=== PATIENT | female | born 1965 | race Caucasian/White ===

== ENCOUNTER → 2016-06-12 | Outpatient (CLI) | payer OTHER ==
--- NOTE | 2016-06-12 10:30 | US ---
EXAMINATION TYPE: US carotid duplex BILAT DATE OF EXAM: 06/12/2016 10:09 AM COMPARISON: NONE CLINICAL HISTORY: G43.119 Intractable migraine w/aura w/o migrainosus. EXAM MEASUREMENTS: RIGHT: Peak Systolic Velocity (PSV) cm/sec ----- Right CCA: 90.8 ----- Right ICA: 82.0 ----- Right ECA: 64.2 ICA/CCA ratio: 0.9 RIGHT: End Diastole cm/sec ----- Right CCA: 29.2 ----- Right ICA: 30.3 ----- Right ECA: 12.7 LEFT: Peak Systolic Velocity (PSV) cm/sec ----- Left CCA: 72.8 ----- Left ICA: 78.7 ----- Left ECA: 62.5 ICA/CCA ratio: 1.1 LEFT: End Diastole cm/sec ----- Left CCA: 28.4 ----- Left ICA: 36.9 ----- Left ECA: 14.5 VERTEBRALS (direction of flow): Right Vertebral: Antegrade Left Vertebral: Antegrade TECHNOLOGIST IMPRESSION: No significant stenosis seen, no elevated velocities, no plaque identified. Grayscale images show no significant plaque at carotid bulb level bilaterally. Velocity measurements and ratios in visualized portion of both internal carotid arteries is within normal limits. IMPRESSION: No hemodynamically significant stenosis is seen in either internal carotid artery. Criteria for Assigning % of Stenosis / Diameter reduction (Estimation based on the indirect measurements of the internal carotid artery velocities (ICA PSV). 1. Normal (no stenosis)=ICA PSV < 125 cm/s: ratio < 2.0: ICA EDV<40 cm/s.
== END | disposition home or self-care (01) ==
LOC: RADUSWWP 09:49
PROVIDERS: ATTEND Psychiatry & Neurology Neurology
DX: G43.119 Migraine with aura, intractable, without status migrainosus (principal)
CPT/HCPCS: 93880

== ENCOUNTER → 2016-06-13 | Outpatient (CLI) | payer OTHER ==
[2016-06-13 09:31] VITALS: BP 121/77; PULSE 80; TEMP 98.3; BMI 31.6
[2016-06-13 11:31] LABS: INR 1.1 (<1.1); Partial Thromboplastin Time 23.3 sec (22.0-30.0); Prothrombin Time 11.2 sec (9.0-12.0)
[2016-06-13 11:48] LABS: CH 30.6; CHCM 35.2; HGB 15.1 gm/dL (11.4-16.0); MCH 29.3 pg (25.0-35.0); MCHC 33.6 g/dL (31.0-37.0); MCV 87.2 fL (80.0-100.0); Mean Platelet Volume 7.6; RBC 5.16 m/uL (3.80-5.40); RDW 13.9 % (11.5-15.5); WBC 7.4 k/uL (3.8-10.6)
[2016-06-13 12:36] LABS: ALT 102 U/L (9-52); AST 45 U/L (14-36); Alkaline Phosphatase 97 U/L (38-126); Anion Gap 14 mmol/L; Blood Urea Nitrogen 17 mg/dL (7-17); Calcium 9.5 mg/dL (8.4-10.2); Carbon Dioxide 21 mmol/L (22-30); Chloride 107 mmol/L (98-107); Cholesterol 138 mg/dL (<200); Glucose 92 mg/dL (74-99); HDL Cholesterol 39 mg/dL (40-60); Iron 130 ug/dL (37-170); Magnesium 2.1 mg/dL (1.6-2.3); Non-African American GFR(MDRD) >60 (>60 ml/min/1.73 sqM); Phosphorous 4.4 mg/dL (2.5-4.5); Sodium 142 mmol/L (137-145); Total Bilirubin 0.7 mg/dL (0.2-1.3); Total Protein 6.8 g/dL (6.3-8.2); Triglycerides 140 mg/dL (<150)
[2016-06-13 12:45] LABS: % Iron Saturation 36.8 % (20-50); Prealbumin 26 mg/dL (18-36); Total Iron Binding Capacity 353 ug/dL (265-497)
[2016-06-13 13:40] LABS: Vitamin B12 410 pg/mL (239-931)
[2016-06-13 14:11] LABS: Hemoglobin A1C 4.7 % (4.2-6.1)
[2016-06-19 14:09] LABS: Selenium 120 mcg/L (63-160)
--- NOTE | 2016-08-01 05:48 | P.PN ---
Progress Note - Text DATE OF SERVICE: 06/13/2016 CHIEF COMPLAINT: Followup gastric bypass. HISTORY OF PRESENT ILLNESS: Jolie Reilly is a 51-year-old female, status post gastric bypass 12/11/2015. She is now 6 months postop. Her heaviest weight in this program was 274 pounds. Today she comes in weighing 190 pounds. She has lost 84 pounds. For her height of 5 feet 5 inches, her ideal body weight is 149 pounds. Percent excess weight loss after 6 months is 67%. Body mass index has been reduced from 45.7 down to 31.7. Total BMI point reduction is 14 points. She reports moderate improvement of her hypertension. Her gastroesophageal reflux disease has completely resolved. She does report intermittent constipation. No reports of dumping syndrome. She comes in with reports of hair loss, including panniculitis of the abdominal skin. Now she presents for further evaluation and management. PAST MEDICAL HISTORY: 1. Morbid obesity. 2. Asthma. 3. Vertigo. 4. Gastroesophageal reflux disease. 5. Hypertension. 6. Anxiety. 7. Depression. 8. Hypothyroidism. PAST SURGICAL HISTORY: 1. Breast biopsy. 2. Cholecystectomy. 3. Tonsillectomy. 4. Upper endoscopy. 5. Colonoscopy. 6. Spinal tap. 7. Hysterectomy. 8. Sleep assessment. 9. Adia-en-Y gastric bypass. MEDICATIONS: 1. Lisinopril. 2. Flonase. 3. Prozac. 4. Fiorinal. 5. Ventolin inhaler. 6. Xanax. 7. Vitamin B complex. 8. Multivitamin. 9. Vitamin D. 10. Glucosamine sulfate. 11. Vitamin A. 12. Iron. 13. Calcium nitrate. 14. Omeprazole. ALLERGIES: 1. AMOXICILLIN. 2. CIPRO. 3. LASIX. 4. AUGMENTIN. 5. SHELLFISH. 6. RAW EGG. SOCIAL HISTORY: Former tobacco user. Also former alcohol use. FAMILY HISTORY: Notable for lung cancer. REVIEW OF SYSTEMS: CONSTITUTIONAL: [place] body weight of 149 pounds. Highest weight of 274 pounds. Present weight of 190 pounds. Maintained weight loss of 84 pounds. Percent excess weight loss of 67%. Body mass index reduced from 45.7 down to 31.6. Total BMI point reduction of 14 points. She has lost another 16 pounds since her last visit 4 months ago. CARDIOVASCULAR: Improvement of hypertension. GASTROINTESTINAL: Improved gastroesophageal reflux disease. RESPIRATORY: Resolved sleep apnea. MUSCULOSKELETAL: Improved knee and hip pain. ENDOCRINE: History of hypothyroidism. No reports of active diabetes. HEENT: Denied any trouble with vision or hearing. Wears glasses. NEURO: Denies any seizure disorder, however, has migraines. PSYCH: Denies any depression or suicidal ideation. HEMATOLOGIC: Denies any personal history or family history of pulmonary emboli or DVTs. PHYSICAL EXAM: VITAL SIGNS: 98.3, 80, 121/77, respirations of 16; 5 foot 5 inches, 190 pounds. Body mass 31.6. ABDOMEN: Soft, nontender. Hyperemia noted along with pannus. No palpable incisional hernias. Abdominal skin of 5 to 8 pounds hanging over pubis of 5 cm. MUSCULOSKELETAL: No clubbing, cyanosis, or edema. GENERAL: Well-developed female in no acute distress. HEENT: No scleral icterus. Extraocular movements grossly intact. Moist buccal mucosa. NECK: Supple without lymphadenopathy. CHEST: Unlabored respirations with equal bilateral excursion. CARDIOVASCULAR: Regular rate and rhythm. NEURO: No focal or lateralizing signs. Cranial nerves 2 through 12 grossly within normal limits. PSYCH: Appropriate affect. Alert and oriented to person, place and time. LABS: Hemoglobin normal at 15.1. Carbon dioxide low at 21. Creatinine low at 0.5. AST elevated at 45. ALT elevated at 102. HDL low at 39. Rest of trace elements are within normal limits. ASSESSMENT: 1. Morbid obesity due to excess calories, resolved. 2. Body mass index reduced from 45.7 down to 31.6, overweight. 3. Dietary surveillance and counseling. 4. History of primary snoring, resolved. 5. Depression without suicidal ideation. 6. Fibromyalgia. 7. Hypertensive heart disease without known cardiomyopathy, improved. 8. Osteoarthritis of the bilateral knees and lower back, improved. 9. Gastroesophageal reflux disease, improved. 10. Hypothyroidism. 11. Status post Adia-en-Y gastric bypass. 12. Vitamin A deficiency. 13. Vitamin D deficiency. 14. Hypotension, resolved. 15. Intermittent dysphagia. 16. Panniculitis. 17. History of hair loss. PLAN: 1. For her hair loss, her nutritional profile is within normal limits. Alternatively, she may take biotin for hair. Otherwise hair loss may be a genetic factor. 2. She reports improvement of her reflux disease and I have offered discontinuing her omeprazole. 3. On exam, she does have history of redundant pannus. Would recommend nystatin powder for her panniculitis. 4. She is 6 months out and has done extremely well with percent excess weight loss of 67%. 5. Recommended followup 3 months postop; otherwise for August 2016.
== END | disposition home or self-care (01) ==
LOC: BARWHC3 08:58
PROVIDERS: ATTEND Surgery Plastic and Reconstructive Surgery
DX: Z48.815 Encounter for surgical aftercare following surgery on the digestive system (principal); E66.01 Morbid (severe) obesity due to excess calories; Z98.84 Bariatric surgery status; Z71.3 Dietary counseling and surveillance; E21.1 Secondary hyperparathyroidism, not elsewhere classified; E89.1 Postprocedural hypoinsulinemia; D50.8 Other iron deficiency anemias; E44.0 Moderate protein-calorie malnutrition; E55.9 Vitamin D deficiency, unspecified; K74.1 Hepatic sclerosis; N19 Unspecified kidney failure; K50.90 Crohn's disease, unspecified, without complications
CPT/HCPCS: 84255; 84134; 84425; 80061; 80053; 82607; 82728; 83036; 82525; 82746; 83540; 83550; 83735; 84100; 84443; 84590; 84630; 85027; 85610; 85730; 82306; 83970; 97803; G0463; 99211

== ENCOUNTER → 2016-06-28 | Outpatient (CLI) | payer OTHER ==
[2016-06-28 13:25] LABS: ALT 69 U/L (9-52); AST 46 U/L (14-36)
== END | disposition home or self-care (01) ==
LOC: LABWHC1 12:14
PROVIDERS: ATTEND Family Medicine
DX: R89.9 Unspecified abnormal finding in specimens from other organs, systems and tissues (principal)
CPT/HCPCS: 36415; 84450; 84460

== ENCOUNTER → 2016-07-09 | Outpatient (CLI) | payer OTHER ==
[2016-07-09 12:47] LABS: Bilirubin, Delta 0.3 mg/dL (0.0-0.2); Total Bilirubin 0.8 mg/dL (0.2-1.3); Total Protein 6.4 g/dL (6.3-8.2)
== END ==
LOC: LABWHC1 11:57
PROVIDERS: ATTEND Family Medicine
DX: R94.5 Abnormal results of liver function studies (principal)
CPT/HCPCS: 36415; 80076

== ENCOUNTER → 2016-07-11 | Outpatient (CLI) | payer OTHER ==
[2016-07-11 20:10] LABS: Appearance,CSF Clear
[2016-07-15 13:46] LABS: Lyme Specimen Source Not Provided
[2016-07-16 14:19] LABS: Immunoglobulin G 297 mg/dL (700 - 1600)
== END | disposition home or self-care (01) ==
LOC: LABWHC1 13:58
PROVIDERS: ATTEND Nurse Practitioner Acute Care
DX: R90.82 White matter disease, unspecified (principal)
CPT/HCPCS: 36415; 82040; 82042; 82784; 83873; 83916; 84157; 87476; 88108; 89050

== ENCOUNTER → 2016-07-18 | Outpatient (CLI) | payer OTHER ==
[2016-07-18 12:01] LABS: CHCM 34.8; HCT 42.1 % (34.0-46.0); HDW 2.84; HGB 14.6 gm/dL (11.4-16.0); MCH 31.1 pg (25.0-35.0); MCHC 34.7 g/dL (31.0-37.0); MCV 89.4 fL (80.0-100.0); Mean Platelet Volume 8.4; RDW 13.2 % (11.5-15.5); WBC 5.7 k/uL (3.8-10.6)
[2016-07-18 12:10] LABS: ALT 77 U/L (9-52); AST 49 U/L (14-36)
[2016-07-18 12:43] LABS: Hepatitis B Surface Ag Index 0.05
[2016-07-18 12:49] LABS: Hepatitis B Core IgM Index 0.02
[2016-07-18 13:00] LABS: Hepatitis C Virus IgG Index 0.01
[2016-07-18 13:05] LABS: Hepatitis C Virus IgG Ab Negative (Negative)
== END ==
LOC: LABWHC1 11:20
PROVIDERS: ATTEND Family Medicine
DX: D64.9 Anemia, unspecified (principal); R94.5 Abnormal results of liver function studies
CPT/HCPCS: 36415; 80074; 84450; 84460; 85027

== ENCOUNTER → 2016-07-18 | Outpatient (CLI) | payer OTHER ==
[2016-07-18 11:45] VITALS: BP 109/72; PULSE 74; RESP 16; TEMP 98.3; BMI 32.0
--- NOTE | 2016-08-15 22:01 | P.PN ---
Progress Note - Text DATE OF SERVICE: 07/18/2016 CHIEF COMPLAINT: Follow-up gastric bypass. HISTORY OF PRESENT ILLNESS: Jolie Reilly is a 51-year-old female who is status post gastric bypass 12/11/2015. She is now 9 months out. At her height of 5 feet 5 inches, her ideal body weight is 149 pounds. Her highest weight is 274 pounds. She comes in weighing 192 pounds. She has lost 82 pounds. Percent excess weight loss is 66%. Body mass index is reduced from 45.7 down to 32. Total BMI point reduction is 13.7. She is 43 pounds overweight. She still reports mild gastroesophageal reflux disease whereby she is still taking omeprazole. She reports troubles with meal plan and continued protein intake. She now presents for further evaluation and management. PAST MEDICAL HISTORY: 1. Morbid obesity. 2. Asthma. 3. Vertigo. 4. Gastroesophageal reflux disease. 5. Hypertension. 6. Anxiety. 7. Depression. 8. Hypothyroidism. PAST SURGICAL HISTORY: 1. Breast biopsy. 2. Cholecystectomy. 3. Tonsillectomy. 4. Upper endoscopy. 5. Colonoscopy. 6. Spinal tap. 7. Hysterectomy. 8. Sleep assessment. 9. Adia-en-Y gastric bypass. MEDICATIONS: 1. Vitamin B complex. 2. Vitamin A. 3. Omeprazole. 4. Nystatin powder. 5. Multivitamin. 6. Antivert. 7. Lisinopril. 8. Levothyroxine. 9. Iron. 10. Glucosamine sulfate. 11. Flonase. 12. Prozac. 13. Vitamin D. 14. Calcium citrate. 15. Fiorinal. 16. Ventolin nebulizer. 17. Ventolin inhaler. 18. Xanax. ALLERGIES: 1. AMOXICILLIN. 2. CIPRO. 3. LASIX. 4. AUGMENTIN. 5. SHELLFISH. 6. RAW EGG. SOCIAL HISTORY: Former tobacco user. Also former alcohol use. FAMILY HISTORY: Notable for lung cancer. REVIEW OF SYSTEMS: CARDIOVASCULAR: She has decreased her dose of her lisinopril including blood pressure medications. RESPIRATORY: She has resolved obstructive sleep apnea. CONSTITUTIONAL: Total maintained weight loss of 82 pounds. Percent excess weight loss of 66%. At her height of 5 feet 5 inches, her ideal body weight is 149 pounds. Her highest weight is 274 pounds. She comes in weighing 192 pounds. She has lost 82 pounds. Body mass index is reduced from 45.7 down to 32. Total BMI point reduction is 13.7. She is 43 pounds overweight. GASTROINTESTINAL: Improved gastroesophageal reflux disease. MUSCULOSKELETAL: Improved knee and hip pain. ENDOCRINE: History of hypothyroidism. No reports of active diabetes. HEENT: Denied any trouble with vision or hearing. Wears glasses. NEURO: Denies any seizure disorder, however, has migraines. PSYCH: Denies any depression or suicidal ideation. HEMATOLOGIC: Denies any personal history or family history of pulmonary emboli or DVTs. PHYSICAL EXAM: VITAL SIGNS: 98.3, 74, 16, 109/72; 5 feet 5, 192 pounds, body mass index 32. ABDOMEN: Soft, nontender, nondistended. No palpable incisional hernias. MUSCULOSKELETAL: No clubbing, cyanosis, or edema. GENERAL: Well-developed female in no acute distress. HEENT: No scleral icterus. Extraocular movements grossly intact. Moist buccal mucosa. NECK: Supple without lymphadenopathy. CHEST: Unlabored respirations with equal bilateral excursion. CARDIOVASCULAR: Regular rate and rhythm. NEURO: No focal or lateralizing signs. Cranial nerves 2 through 12 grossly within normal limits. PSYCH: Appropriate affect. Alert and oriented to person, place and time. LABS: Hepatitis was negative. AST and ALT are elevated. ASSESSMENT: 1. Morbid obesity due to excess calories, resolved. 2. Body mass index reduced from 45.7 down to 31.6, overweight. 3. Dietary surveillance and counseling. 4. History of primary snoring, resolved. 5. Depression without suicidal ideation. 6. Fibromyalgia. 7. Hypertensive heart disease without known cardiomyopathy, improved. 8. Osteoarthritis of the bilateral knees and lower back, improved. 9. Gastroesophageal reflux disease, improved. 10. Hypothyroidism. 11. Status post Adia-en-Y gastric bypass. 12. Vitamin A deficiency. 13. Vitamin D deficiency. 14. Hypotension, resolved. 15. Intermittent dysphagia. 16. Panniculitis. 17. History of hair loss. 18. History of elevated liver enzymes. PLAN: 1. As she is a bypass patient it is expected that AST and ALT will be elevated and transient. I recommend no additional surgical interventions. 2. Her HDL is low at 39. Would recommend cardiovascular exercise to elevate her HDL. 3. Recommend follow-up one year postop. Full bariatric metabolic panel was reviewed with her in detail. I have recommended decreasing her lisinopril.
== END | disposition home or self-care (01) ==
LOC: BARWHC3 10:27
PROVIDERS: ATTEND Surgery Plastic and Reconstructive Surgery
DX: E66.01 Morbid (severe) obesity due to excess calories (principal); Z68.32 Body mass index [BMI] 32.0-32.9, adult
CPT/HCPCS: 99211

== ENCOUNTER → 2016-07-24 | Outpatient (CLI) | payer OTHER ==
--- NOTE | 2016-07-24 13:46 | MR ---
EXAMINATION TYPE: MR cervical spine wo con DATE OF EXAM: 07/24/2016 11:09 AM COMPARISON: 07/23/1999 HISTORY: Patient c/o migraines, nerve pain, unsteady gait, stiffness in neck TECHNIQUE: Multiplanar, multisequence images of the cervical spine were acquired. C2-C3: No evidence for degenerative disc disease. No disc bulge/herniation or protrusion. No Canal stenosis. Foramina are patent bilaterally. C3-C4: No evidence for degenerative disc disease. No disc bulge/herniation or protrusion. No Canal stenosis. Foramina are patent bilaterally. C4-C5: No evidence for degenerative disc disease. No disc bulge/herniation or protrusion. No Canal stenosis. Foramina are patent bilaterally. C5-C6: Very mild right paracentral disc bulging. Mild uncovertebral joint hypertrophy. No canal steno sis or foraminal encroachment C6-C7: Mild uncovertebral joint hypertrophy bilaterally and very minimal central paracentral disc bul ging. No canal stenosis. No foraminal encroachment or nerve root impingement. C7-T1: No evidence for degenerative disc disease. No disc bulge/herniation or protrusion. No Canal stenosis. Foramina are patent bilaterally. Cervical segments are intact. There is normal alignment. Cervical spinal cord is of normal signal. Craniovertebral junction relationships are within normal limits. Loss of disc height and signal is greatest at C4-C5, C5-C6. There are endplate discogenic marrow signal changes compatible with degener ative disc disease. Minimal anterolisthesis grade 1 present at C4-C5, C5-C6, C6-C7. IMPRESSION: 1. Stable multilevel degenerative disc disease. 2. Disc bulging C5-6 and C6-C7 with no canal stenosis or foraminal encroachment.
== END | disposition home or self-care (01) ==
LOC: RADMRIMAIN 10:22
PROVIDERS: ATTEND Nurse Practitioner Acute Care
DX: M50.222 Other cervical disc displacement at C5-C6 level (principal); M50.30 Other cervical disc degeneration, unspecified cervical region
CPT/HCPCS: 72141

== ENCOUNTER → 2016-09-07 | Outpatient (CLI) | payer OTHER ==
[2016-09-07 08:22] LABS: Blood Urea Nitrogen 14 mg/dL (7-17); Non-African American GFR(MDRD) >60 (>60 ml/min/1.73 sqM)
--- NOTE | 2016-09-08 07:50 | MR ---
MRI of the brain with and without contrast HISTORY: Headaches. TECHNIQUE: T1-weighted sagittal, T2, FLAIR, and diffusion axial, postcontrast T1 axial and coronal vi ews of the brain are submitted. CONTRAST: 17 mL's MultiHance COMPARISON: 03/18/2016 FINDINGS: There is no evidence of acute ischemia. The ventricles, basal cisterns, and sulci overlying the co nvexities are consistent with the patient's age. There is no mass effect or enhancing mass. Craniocervical junction maintained. Partially empty sella turcica. No evidence of cerebellopontine an gle mass. Linear area of enhancement involving the right frontal lobe seen on the sagittal and coronal image ap pears vascular. WHITE MATTER: Previous seen noted pontine lesions are no longer identified. There are proximally 25 white matter lesions seen scattered throughout the white matter bilaterally. The largest within the left parietal lobe measuring 9 mm. This is increased in size from previous exa m. Remaining lesions appear stable in size, morphology and number. No enhancing lesion. IMPRESSION: 1. There is a lesion within the left parietal lobe which is increased in size now measuring 9 mm and previously measuring approximately 4 mm. No enhancing lesions. 2. There is interval resolution of pontine lesions.
== END | disposition home or self-care (01) ==
LOC: RADMRIMAIN 07:40
PROVIDERS: ATTEND Nurse Practitioner Acute Care
DX: G93.89 Other specified disorders of brain (principal); R90.82 White matter disease, unspecified; Z88.1 Allergy status to other antibiotic agents; Z91.09 Other allergy status, other than to drugs and biological substances
CPT/HCPCS: 82565; 84520; 70553; A9577

== ENCOUNTER → 2016-10-09 | Outpatient (CLI) | payer OTHER ==
[2016-10-09 16:27] VITALS: BP 108/76; PULSE 69; RESP 16; TEMP 98.3; BMI 31.2
[2016-10-09 17:30] LABS: CHCM 33.9; HCT 44.5 % (34.0-46.0); HDW 2.68; HGB 14.6 gm/dL (11.4-16.0); MCHC 32.8 g/dL (31.0-37.0); MCV 91.7 fL (80.0-100.0); Mean Platelet Volume 8.5; RBC 4.85 m/uL (3.80-5.40); RDW 13.4 % (11.5-15.5); WBC 7.2 k/uL (3.8-10.6)
[2016-10-09 17:36] LABS: INR 1.1 (<1.1)
[2016-10-09 17:37] LABS: Partial Thromboplastin Time 24.2 sec (22.0-30.0)
[2016-10-09 17:42] LABS: ALT 145 U/L (9-52); AST 89 U/L (14-36); Alkaline Phosphatase 130 U/L (38-126); Anion Gap 11 mmol/L; Blood Urea Nitrogen 13 mg/dL (7-17); Calcium 9.5 mg/dL (8.4-10.2); Carbon Dioxide 23 mmol/L (22-30); Chloride 107 mmol/L (98-107); Cholesterol 145 mg/dL (<200); Glucose 86 mg/dL (74-99); HDL Cholesterol 54 mg/dL (40-60); Iron 104 ug/dL (37-170); Magnesium 2.2 mg/dL (1.6-2.3); Non-African American GFR(MDRD) >60 (>60 ml/min/1.73 sqM); Phosphorous 4.8 mg/dL (2.5-4.5); Potassium 4.9 mmol/L (3.5-5.1); Sodium 141 mmol/L (137-145); Total Bilirubin 0.4 mg/dL (0.2-1.3); Total Protein 6.5 g/dL (6.3-8.2); Triglycerides 167 mg/dL (<150)
[2016-10-09 17:51] LABS: % Iron Saturation 31.3 % (20-50); Prealbumin 26 mg/dL (18-36); Total Iron Binding Capacity 332 ug/dL (265-497)
[2016-10-09 18:46] LABS: Vitamin B12 608 pg/mL (239-931)
[2016-10-09 20:35] LABS: Hemoglobin A1C 4.7 % (4.2-6.1)
[2016-10-11 16:20] LABS: Selenium 154 mcg/L (63-160)
== END | disposition home or self-care (01) ==
LOC: BARWHC3 14:40
PROVIDERS: ATTEND Surgery Plastic and Reconstructive Surgery
DX: Z48.815 Encounter for surgical aftercare following surgery on the digestive system (principal); E66.01 Morbid (severe) obesity due to excess calories; Z98.84 Bariatric surgery status; E21.1 Secondary hyperparathyroidism, not elsewhere classified; E89.1 Postprocedural hypoinsulinemia; D50.9 Iron deficiency anemia, unspecified; E44.0 Moderate protein-calorie malnutrition; E55.9 Vitamin D deficiency, unspecified; K74.1 Hepatic sclerosis; T56.894A Toxic effect of other metals, undetermined, initial encounter; K90.9 Intestinal malabsorption, unspecified; Z68.35 Body mass index [BMI] 35.0-35.9, adult
CPT/HCPCS: 84255; 84134; 84425; 80061; 80053; 82607; 82728; 83036; 82525; 82746; 83540; 83550; 83735; 84100; 84443; 84590; 84630; 85027; 85610; 85730; 82306; 83970; G0463; 99211

== ENCOUNTER → 2016-11-11 | Outpatient (CLI) | payer OTHER ==
--- NOTE | 2016-11-12 13:59 | MM ---
Reason for exam: screening (asymptomatic). Last mammogram was performed 1 year and 3 months ago. History: Patient is postmenopausal. Family history of breast cancer in 3 maternal aunts. Benign excisional biopsy, February 16, 1997. Physical Findings: A clinical breast exam by your physician is recommended on an annual basis and results should be correlated with mammographic findings. MG Screening Mammo w CAD Bilateral CC and MLO view(s) were taken. Prior study comparison: August 14, 2015, bilateral MG screening mammo w CAD. July 12, 2014, bilateral MG screening mammo w CAD. There are scattered fibroglandular densities. No significant changes when compared with prior studies. ASSESSMENT: Benign, BI-RAD 2 RECOMMENDATION: Routine screening mammogram of both breasts in 1 year.
== END | disposition home or self-care (01) ==
LOC: RADMAMWWP 10:49
PROVIDERS: ATTEND Obstetrics & Gynecology
DX: Z12.31 Encounter for screening mammogram for malignant neoplasm of breast (principal); Z80.3 Family history of malignant neoplasm of breast

== ENCOUNTER → 2016-12-12 | Outpatient (CLI) | payer OTHER ==
[2016-12-12 11:54] VITALS: BMI 31.6
[2016-12-12 12:08] VITALS: BP 121/88; PULSE 75; RESP 20; TEMP 98.8
[2016-12-12 13:24] LABS: INR 1.1 (<1.2); Partial Thromboplastin Time 23.3 sec (22.0-30.0); Prothrombin Time 11.3 sec (9.0-12.0)
[2016-12-12 13:34] LABS: ALT 73 U/L (9-52); AST 34 U/L (14-36); Alkaline Phosphatase 103 U/L (38-126); Anion Gap 12 mmol/L; Blood Urea Nitrogen 8 mg/dL (7-17); Calcium 9.5 mg/dL (8.4-10.2); Carbon Dioxide 22 mmol/L (22-30); Chloride 107 mmol/L (98-107); Cholesterol 139 mg/dL (<200); Glucose 84 mg/dL (74-99); HDL Cholesterol 52 mg/dL (40-60); Iron 107 ug/dL (37-170); Non-African American GFR(MDRD) >60 (>60 ml/min/1.73 sqM); Phosphorous 4.6 mg/dL (2.5-4.5); Potassium 4.2 mmol/L (3.5-5.1); Sodium 141 mmol/L (137-145); Total Bilirubin 0.6 mg/dL (0.2-1.3); Total Protein 6.4 g/dL (6.3-8.2)
[2016-12-12 13:45] LABS: Prealbumin 24 mg/dL (18-36); Total Iron Binding Capacity 357 ug/dL (265-497)
[2016-12-12 13:53] LABS: CH 30.5; CHCM 35.3; HCT 38.9 % (34.0-46.0); HDW 2.84; HGB 14.3 gm/dL (11.4-16.0); MCHC 36.8 g/dL (31.0-37.0); MCV 86.9 fL (80.0-100.0); Mean Platelet Volume 7.9; RBC 4.48 m/uL (3.80-5.40); WBC 5.8 k/uL (3.8-10.6)
[2016-12-12 14:41] LABS: Vitamin B12 399 pg/mL (239-931)
[2016-12-12 18:11] LABS: Hemoglobin A1C 4.5 % (4.2-6.1)
[2016-12-17 20:09] LABS: Selenium 145 mcg/L (63-160)
== END | disposition home or self-care (01) ==
LOC: BARWHC3 10:39
PROVIDERS: ATTEND Surgery Plastic and Reconstructive Surgery
DX: Z48.815 Encounter for surgical aftercare following surgery on the digestive system (principal); E66.01 Morbid (severe) obesity due to excess calories; Z71.3 Dietary counseling and surveillance; Z98.84 Bariatric surgery status; E21.1 Secondary hyperparathyroidism, not elsewhere classified; E89.1 Postprocedural hypoinsulinemia; D50.8 Other iron deficiency anemias; E44.0 Moderate protein-calorie malnutrition; E55.9 Vitamin D deficiency, unspecified; K74.1 Hepatic sclerosis; N19 Unspecified kidney failure; K50.90 Crohn's disease, unspecified, without complications; Z68.31 Body mass index [BMI] 31.0-31.9, adult
CPT/HCPCS: 84255; 84134; 84425; 80061; 80053; 82607; 82728; 83036; 82525; 82746; 83540; 83550; 83735; 84100; 84443; 84590; 84630; 85027; 85610; 85730; 82306; 83970; 97803; G0463; 99211

== ENCOUNTER → 2018-01-10 | Outpatient (CLI) | payer OTHER ==
--- NOTE | 2018-01-11 12:52 | MR ---
EXAMINATION TYPE: MR lizbethine/luigiine wo con DATE OF EXAM: 01/10/2018 COMPARISON: 07/24/2016 HISTORY: MS protocol, neck and mid back pain, unsteady gait, BUE weakness TECHNIQUE: T1 sagittal and coronal, T2 sagittal, and gradient echo axial views of the cervical spine are submitted. FINDINGS: The cranial cervical junction is preserved. There is no abnormal signal seen within the sp inal cord or paraspinal soft tissues. Incidental note made of a partially empty sella turcica. At C2-3 there is no disc herniation or canal stenosis. Disc desiccation noted. Neural foramina. At C3-4 there is no disc herniation or canal stenosis. Disc desiccation noted. Neural foramina At C4-5 there is mild degenerative disc disease. There is uncovertebral joint hypertrophy bilaterally . No foraminal encroachment or canal stenosis. No disc herniation. At C5-6 there is severe degenerative disc disease and uncovertebral joint hypertrophy. There is broad -based central and right paracentral disc bulging with mild effacement of thecal sac. No canal stenos is or foraminal encroachment. At C6-7 there is severe severe degenerative disc disease. Mild uncovertebral joint hypertrophy bilate rally with central and left paracentral disc bulging appearance table. At C7-T1 there is no disc ben iation or canal stenosis. No foraminal encroachment. IMPRESSION: 1. Multilevel degenerative disc disease with disc bulging at C5-6 and C6-C7 but no evidence of canal stenosis or foraminal encroachment. Multilevel degenerative disc disease with disc bulging at C5-6 a nd C6-C7 but no evidence of canal stenosis or foraminal encroachment. Findings are stable. 2. No abnormal signal seen in the visualized spinal cord. EXAMINATION TYPE: MR carolyn/melvina wo con DATE OF EXAM: 01/10/2018 COMPARISON: None HISTORY: MS protocol, neck and mid back pain, unsteady gait, BUE weakness Standard multiplanar, multisequence MRI departmental protocol Multiplanar, multisequence images of the thoracic spine were acquired. FINDINGS: Vertebral body height and disc interspaces maintained. There is mild multilevel degenerative disc dis ease. No compression deformities. No abnormal signal the visualized thoracic spinal cord. At T8-T9 there is a small left paracentral di sc herniation. No spinal cord contact or foraminal encroachment. Remaining levels demonstrate no evidence of disc herniation, canal stenosis, or foraminal encroachmen t. IMPRESSION: 1. Multilevel mild degenerative disc disease with a small focal left paracentral disc herniation T8-T 9. 2. No abnormal signal seen in the visualized spinal cord.
--- NOTE | 2018-01-11 13:00 | MR ---
EXAMINATION TYPE: MR brain wo/w con DATE OF EXAM: 01/10/2018 COMPARISON: 09/07/2016 HISTORY: MS protocol, white matter changes, headaches TECHNIQUE: Multiplanar, multisequence images of the brain and brainstem is performed without and with IV contras t, utilizing 9 mL intravenous Gadavist . FINDINGS: Diffusion weighted images demonstrate no evidence of a recent infarct or other diffusion ab normality. The ventricular system and cisternal spaces are normal in size and appearance. The brain volume is age appropriate. Midline structures demonstrate normal morphology. Partially empty sella turcica noted. The craniocer vical junction appears within normal limits. Incidental note made of a tiny right frontal venous kelly devin.. The dural venous sinuses appear patent. Changes of chronic mild sinusitis noted. WHITE MATTER: There are approximately 25 white matter lesions seen scattered throughout the white matter bilaterall y. The largest within the left parietal lobe measuring 9 mm. Regions appear stable in size, morphology and number. No enhancing lesion. No callosal lesions IMPRESSION: 1. Stable white matter findings unchanged in size number or morphology. No enhancing lesions.
== END | disposition home or self-care (01) ==
LOC: RADMRIMAIN 11:43
PROVIDERS: ATTEND Psychiatry & Neurology Neurology
DX: M51.24 Other intervertebral disc displacement, thoracic region (principal); M51.34 Other intervertebral disc degeneration, thoracic region; R90.82 White matter disease, unspecified; Z88.1 Allergy status to other antibiotic agents
CPT/HCPCS: 70553; 72141; 72146; A9581

== ENCOUNTER 2018-03-25 17:49 | Emergency (ER) | payer OTHER ==
[2018-03-25 17:55] VITALS: RESP 18
[2018-03-25] MEDS ORDERED: SODIUM CHLORIDE 0.9% 1,000 ML IV STA (18:18)
--- NOTE | 2018-03-25 18:43 | ED ---
General Adult HPI - General Chief complaint: Altered Mental Status Stated complaint: fall, poss seizure Time Seen by Provider: 03/25/18 18:09 Source: patient, EMS, RN notes reviewed Mode of arrival: EMS Limitations: no limitations - History of Present Illness Initial comments: This a 53-year-old female presents emergency department via EMS chief complaint syncope. Patient states that she was talking on the phone to her mother and she states that she told her that she was going to pass out she felt very lightheaded, flushed feeling. Patient states then she woke up on the ground to EMS. Patient states she has no complaints at this time other than a headache. Patient states she does have chronic migraine headaches in which this feels similar. Patient denies any blurred vision, focal weakness. She did have some nausea but states it is improving. Denies chest pain, shortness of breath, dizziness. Patient states that she's never had this happen the past. She has no history of seizures. Patient was confused initially when EMS arrived but states that she is at her baseline at this time. - Related Data Home Medications Medication Instructions Recorded Confirmed ALPRAZolam [Xanax] 1 mg PO TID PRN 12/09/13 03/25/18 Meclizine [Antivert] 25 mg PO TID PRN 02/01/15 03/25/18 Levothyroxine Sodium [Levoxyl] 75 mcg PO DAILY 05/19/15 03/25/18 Albuterol Inhaler [Ventolin Hfa 1 - 2 puff INHALATION RT-Q6H PRN 12/01/15 Inhaler] Albuterol Nebulized [Ventolin 2.5 mg INHALATION RT-Q6H PRN 12/01/15 03/25/18 Nebulized] FLUoxetine HCL [PROzac] 80 mg PO DAILY 03/20/16 03/25/18 Cholecalciferol [Vitamin D3] 1,000 unit PO DAILY 06/13/16 03/25/18 Multivitamins, Thera [Multivitamin] 1 tab PO DAILY 06/13/16 03/25/18 Vitamin A 1 tab PO DAILY 06/13/16 03/25/18 Cetirizine HCl [Zyrtec] 10 mg PO DAILY 03/03/17 03/25/18 Omeprazole 20 mg PO DAILY 03/03/17 03/25/18 Calcium Carbonate/Vitamin D3 1 tab PO BID 03/25/18 03/25/18 [Calcium 600-Vit D3 200 Tablet] Cyclobenzaprine [Flexeril] 10 mg PO BID PRN 03/25/18 03/25/18 Fluconazole [Diflucan] 150 mg PO DAILY PRN 03/25/18 03/25/18 Glucosam/Issac-Msm1/C/Best/Bosw 1 tab PO DAILY 03/25/18 03/25/18 [Glucosamine-Chondroitin Tablet] Ibuprofen [Motrin] 600 mg PO Q8HR PRN 03/25/18 03/25/18 Ketorolac [Toradol] 10 mg PO BID PRN 03/25/18 03/25/18 Allergies Allergy/AdvReac Type Severity Reaction Status Date / Time ciprofloxacin HCl Allergy Anaphylaxis Verified 03/25/18 19:55 [From Cipro] Latex, Natural Rubber Allergy Rash/Hives Verified 03/25/18 19:55 ofloxacin [From Floxin] Allergy Anaphylaxis Verified 03/25/18 19:55 potassium clavulanate Allergy Unknown Verified 03/25/18 19:55 [From Augmentin] silicone Allergy Dyspnea,ITC Verified 03/25/18 19:55 REGGIE shellfish derived [Shrimp] AdvReac LOOSE Verified 03/25/18 19:55 STOOLS raw egg Allergy Dyspnea, Uncoded 03/03/17 13:57 THROAT SWELLING SILICONE Allergy Rash/Hives Uncoded 03/03/17 13:57 Review of Systems ROS Statement: Those systems with pertinent positive or pertinent negative responses have been documented in the HPI. ROS Other: All systems not noted in ROS Statement are negative. Past Medical History Past Medical History: Asthma, GERD/Reflux, Hypertension, Neurologic Disorder, Osteoarthritis (OA), Thyroid Disorder Additional Past Medical History / Comment(s): DIARRHEA,FREQUENT MIGRAINE HEADACHE, STATES PREVIOUS MEDS FOR HTN, NONE NEEDED NOW AFTER WEIGHT LOSS, FREQUENT VERTIGO negative for MS History of Any Multi-Drug Resistant Organisms: None Reported Past Surgical History: Bariatric Surgery, Breast Surgery, Cholecystectomy, Hysterectomy, Tonsillectomy, Uterine Ablation Additional Past Surgical History / Comment(s): r breast calcification removed, fatty tumor removed from scalp, 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 Past Anesthesia/Blood Transfusion Reactions: Motion Sickness Additional Past Anesthesia/Blood Transfusion Reaction / Comment(s): VERTIGO Past Psychological History: Anxiety, Depression, Panic Disorder Smoking Status: Former smoker Past Alcohol Use History: Rare Past Drug Use History: None Reported - Past Family History Father Family Medical History: Cancer Additional Family Medical History / Comment(s): lung cancer General Exam Limitations: no limitations General appearance: alert, in no apparent distress Head exam: Present: atraumatic, normocephalic, normal inspection Eye exam: Present: normal appearance, PERRL, EOMI. Absent: scleral icterus, conjunctival injection, periorbital swelling ENT exam: Present: normal exam, mucous membranes moist, TM's normal bilaterally , normal external ear exam. Absent: normal oropharynx (Hematoma noted of the tongue) Neck exam: Present: normal inspection, tenderness (Mild). Absent: meningismus, full ROM (Patient in c-collar), lymphadenopathy Respiratory exam: Present: normal lung sounds bilaterally. Absent: respiratory distress, wheezes, rales, rhonchi, stridor Cardiovascular Exam: Present: regular rate, normal rhythm, normal heart sounds. Absent: systolic murmur, diastolic murmur, rubs, gallop, clicks GI/Abdominal exam: Present: soft, normal bowel sounds. Absent: distended, tenderness, guarding, rebound, rigid Extremities exam: Present: normal inspection, full ROM, normal capillary refill. Absent: tenderness, pedal edema, joint swelling, calf tenderness Back exam: Present: full ROM. Absent: tenderness, paraspinal tenderness, vertebral tenderness Neurological exam: Present: alert, oriented X3, CN II-XII intact, reflexes normal, other (Finger to nose intact bilaterally without over shooting). Absent : motor sensory deficit Skin exam: Present: warm, dry, intact, normal color. Absent: rash Course Vital Signs 03/25/18 03/25/18 17:50 19:00 Temperature 98 F Pulse Rate 92 82 Respiratory 18 18 Rate Blood Pressure 140/97 123/94 O2 Sat by Pulse 95 96 Oximetry EKG Findings - EKG Comments: EKG Findings:: EKG performed at 18:00 normal sinus rhythm with a rate of 93 HI 196 QRS 102 QT/QTC 384/477 Medical Decision Making - Medical Decision Making 53-year-old female presents emergency Department for syncope versus seizure. Patient clinical symptoms and presentation patient appears to have seizure. Patient does have a hematoma of her tongue, she was postictal per EMS report. CT was obtained which showed no acute abnormality. Patient does see Dr. Hooper neurology. Patient will be advised follow-up for him for an EEG and possible repeat MRI. I discussed that she cannot drive for 6 months and mostly cleared by neurology to return to driving. Patient acknowledges this along with mother in the room. - Lab Data Result diagrams: 03/25/18 18:09 03/25/18 18:09 Lab Results 03/25/18 03/25/18 03/25/18 Range/Units 18:09 18:09 18:09 WBC 7.2 (3.8-10.6) k/uL RBC 4.61 (3.80-5.40) m/uL Hgb 13.9 (11.4-16.0) gm/dL Hct 40.9 (34.0-46.0) % MCV 88.7 (80.0-100.0) fL MCH 30.2 (25.0-35.0) pg MCHC 34.0 (31.0-37.0) g/dL RDW 13.2 (11.5-15.5) % Plt Count 219 (150-450) k/uL Neutrophils % 57 % Lymphocytes % 34 % Monocytes % 5 % Eosinophils % 3 % Basophils % 1 % Neutrophils # 4.1 (1.3-7.7) k/uL Lymphocytes # 2.4 (1.0-4.8) k/uL Monocytes # 0.4 (0-1.0) k/uL Eosinophils # 0.2 (0-0.7) k/uL Basophils # 0.0 (0-0.2) k/uL PT (9.0-12.0) sec INR (<1.2) APTT (22.0-30.0) sec Sodium 140 (137-145) mmol/L Potassium 4.2 (3.5-5.1) mmol/L Chloride 109 H (98-107) mmol/L Carbon Dioxide 20 L (22-30) mmol/L Anion Gap 11 mmol/L BUN 10 (7-17) mg/dL Creatinine 0.54 (0.52-1.04) mg/dL Est GFR (CKD-EPI)AfAm >90 (>60 ml/min/1.73 sqM) Est GFR (CKD-EPI)NonAf >90 (>60 ml/min/1.73 sqM) Glucose 103 H (74-99) mg/dL Calcium 8.4 (8.4-10.2) mg/dL Magnesium 2.1 (1.6-2.3) mg/dL Total Bilirubin 0.3 (0.2-1.3) mg/dL AST 36 (14-36) U/L ALT 61 H (9-52) U/L Alkaline Phosphatase 82 (38-126) U/L Total Creatine Kinase 54 (30-135) U/L CK-MB (CK-2) 0.7 (0.0-2.4) ng/mL CK-MB (CK-2) Rel Index 1.3 Troponin I <0.012 (0.000-0.034) ng/mL Total Protein 6.0 L (6.3-8.2) g/dL Albumin 4.0 (3.5-5.0) g/dL 03/25/18 Range/Units 18:09 WBC (3.8-10.6) k/uL RBC (3.80-5.40) m/uL Hgb (11.4-16.0) gm/dL Hct (34.0-46.0) % MCV (80.0-100.0) fL MCH (25.0-35.0) pg MCHC (31.0-37.0) g/dL RDW (11.5-15.5) % Plt Count (150-450) k/uL Neutrophils % % Lymphocytes % % Monocytes % % Eosinophils % % Basophils % % Neutrophils # (1.3-7.7) k/uL Lymphocytes # (1.0-4.8) k/uL Monocytes # (0-1.0) k/uL Eosinophils # (0-0.7) k/uL Basophils # (0-0.2) k/uL PT 10.6 (9.0-12.0) sec INR 1.1 (<1.2) APTT 20.4 L (22.0-30.0) sec Sodium (137-145) mmol/L Potassium (3.5-5.1) mmol/L Chloride (98-107) mmol/L Carbon Dioxide (22-30) mmol/L Anion Gap mmol/L BUN (7-17) mg/dL Creatinine (0.52-1.04) mg/dL Est GFR (CKD-EPI)AfAm (>60 ml/min/1.73 sqM) Est GFR (CKD-EPI)NonAf (>60 ml/min/1.73 sqM) Glucose (74-99) mg/dL Calcium (8.4-10.2) mg/dL Magnesium (1.6-2.3) mg/dL Total Bilirubin (0.2-1.3) mg/dL AST (14-36) U/L ALT (9-52) U/L Alkaline Phosphatase (38-126) U/L Total Creatine Kinase (30-135) U/L CK-MB (CK-2) (0.0-2.4) ng/mL CK-MB (CK-2) Rel Index Troponin I (0.000-0.034) ng/mL Total Protein (6.3-8.2) g/dL Albumin (3.5-5.0) g/dL Disposition Clinical Impression: Seizure Disposition: HOME SELF-CARE Condition: Stable Instructions: New-Onset Seizure in Adults (ED) Additional Instructions: Please return to the Emergency Department if symptoms worsen or any other concerns. Is patient prescribed a controlled substance at d/c from ED?: No Referrals: Wayne Haro DO [Primary Care Provider] - 1-2 days Yas Hooper MD [STAFF PHYSICIAN] - 1-2 days
[2018-03-25 18:58] LABS: Basophils % (A) 1 %; Eosinophils # (A) 0.2 k/uL (0-0.7); Eosinophils % (A) 3 %; HCT 40.9 % (34.0-46.0); HGB 13.9 gm/dL (11.4-16.0); Lymphocytes # (A) 2.4 k/uL (1.0-4.8); Lymphocytes % (A) 34 %; MCH 30.2 pg (25.0-35.0); MCV 88.7 fL (80.0-100.0); Mean Platelet Volume 7.8; Monocytes # (A) 0.4 k/uL (0-1.0); Monocytes % (A) 5 %; Neutrophils # (A) 4.1 k/uL (1.3-7.7); Neutrophils % (A) 57 %; Platelet Count 219 k/uL (150-450); RBC 4.61 m/uL (3.80-5.40); RDW 13.2 % (11.5-15.5); WBC 7.2 k/uL (3.8-10.6)
[2018-03-25 19:10] LABS: Creatine Kinase 54 U/L (30-135)
[2018-03-25 19:12] LABS: ALT 61 U/L (9-52); AST 36 U/L (14-36); Alkaline Phosphatase 82 U/L (38-126); Anion Gap 11 mmol/L; Blood Urea Nitrogen 10 mg/dL (7-17); Calcium 8.4 mg/dL (8.4-10.2); Carbon Dioxide 20 mmol/L (22-30); Chloride 109 mmol/L (98-107); Glucose 103 mg/dL (74-99); Magnesium 2.1 mg/dL (1.6-2.3); Potassium 4.2 mmol/L (3.5-5.1); Sodium 140 mmol/L (137-145); Total Bilirubin 0.3 mg/dL (0.2-1.3)
--- NOTE | 2018-03-25 19:13 | CT ---
EXAMINATION TYPE: CT brain carolyn freitas DATE OF EXAM: 03/25/2018 COMPARISON: None HISTORY: syncope w/fall possible seizure with visual disturbance CT DLP: 1466.6 mGycm Automated exposure control for dose reduction was used. TECHNIQUE: CT scan of the head and cervical spine are performed without contrast. FINDINGS: Ventricles of normal size. There is no mass effect nor midline shift. There is no sign of intracranial hemorrhage. The calvarium is intact. The cervical vertebra have normal alignment. There is mild narrowing of disc spaces from C4 to C7 wit h spurring of the endplates. Facet joints are intact. The skull base is intact. Prevertebral soft tis sues are not enlarged. IMPRESSION: Negative CT scan of the brain. Mild spondylotic changes in the lower cervical spine. No fracture seen.
[2018-03-25] MEDS ORDERED: KETOROLAC 30 MG/ML 1 ML VIAL IVP STA (19:20)
[2018-03-25] MEDS ORDERED: ACETAMINOPHEN TAB 325 MG TAB PO STA (19:20)
[2018-03-25 19:23] LABS: Creatine Kinase MB 0.7 ng/mL (0.0-2.4); Troponin I <0.012 ng/mL (0.000-0.034)
[2018-03-25 19:29] LABS: INR 1.1 (<1.2); Prothrombin Time 10.6 sec (9.0-12.0)
[2018-03-25 19:33] LABS: Partial Thromboplastin Time 20.4 sec (22.0-30.0)
[2018-03-25 20:32] VITALS: BP 128/86; PULSE 86; TEMP 98.3
[2018-03-25 20:47] LABS: Appearance,Urine Clear (Clear); Bacteria,Urine Rare /hpf; Bilirubin,Urine Negative (Negative); Blood,Urine Negative (Negative); Color,Urine Yellow; Glucose,Urine (UA) Negative (Negative); Hyaline Casts,Urine 8 /lpf (0-2); Ketones,Urine Trace (Negative); Leukocyte Esterase,Urine Negative (Negative); Mucus,Urine Occasional /hpf; Nitrite,Urine Negative (Negative); Protein,Urine 1+ (Negative); RBC,Urine 1 /hpf (0-5); Specific Gravity,Urine 1.016 (1.001-1.035); Squamous Epithelial Cell,Urine 2 /hpf (0-4); Urobilinogen,Urine <2.0 mg/dL (<2.0); WBC,Urine 1 /hpf (0-5)
== END 2018-03-25 20:30 | disposition home or self-care (01) ==
LOC: EC 17:49
DX: R56.9 Unspecified convulsions (principal); S00.532A Contusion of oral cavity, initial encounter; R11.0 Nausea; J45.909 Unspecified asthma, uncomplicated; I10 Essential (primary) hypertension; E07.9 Disorder of thyroid, unspecified; K21.9 Gastro-esophageal reflux disease without esophagitis; F32.9 Major depressive disorder, single episode, unspecified; G43.909 Migraine, unspecified, not intractable, without status migrainosus; F41.0 Panic disorder [episodic paroxysmal anxiety]; Z87.891 Personal history of nicotine dependence; Z88.0 Allergy status to penicillin; Z88.1 Allergy status to other antibiotic agents; Z91.012 Allergy to eggs; Z91.013 Allergy to seafood; Z91.040 Latex allergy status; Z91.048 Other nonmedicinal substance allergy status; Z79.899 Other long term (current) drug therapy; W19.XXXA Unspecified fall, initial encounter
CPT/HCPCS: 99285; 96374; 96361; 36415; 93005; 80053; 82550; 82553; 83735; 84484; 85025; 85610; 85730; 81001; 72125; 70450; J1885

== ENCOUNTER 2018-07-01 08:17 | Day surgery (SDC) | payer OTHER ==
[2018-06-29 11:30] VITALS: BMI 35.7
[~2018-07-01 08:17] MED LIST: LACTATED RINGERS 1,000 ML IV SCH
[2018-07-01] MEDS ORDERED: LACTATED RINGERS 1,000 ML IV ONE (09:14)
[2018-07-01 09:16] VITALS: TEMP 97.5
[2018-07-01] MEDS ORDERED: LIDOCAINE 1% 20 ML VIAL (10MG/ML) FOR IV START INTRADERMA ONE (09:20)
[2018-07-01] MEDS ORDERED: LIDOCAINE 1% INJ 10MG/ML (20 ML MDV) ONE (09:22)
[2018-07-01] MEDS ORDERED: PROPOFOL 10 MG/ML 20 ML VIAL IV ONE (09:22)
--- NOTE | 2018-07-01 09:39 | P.PCN ---
Date of Procedure: 07/01/18 Procedure(s) Performed: BRIEF HISTORY: Patient is a 53-year-old pleasant white female, scheduled for an elective colonoscopy as a part of screening for colorectal neoplasia. PROCEDURE PERFORMED: Colonoscopy. PREOPERATIVE DIAGNOSIS: Screening for colon cancer. IV sedation per Anesthesia. PROCEDURE: After informed consent was obtained, the patient, was brought into the endoscopy unit. IV sedation was administered by Anesthesia under continuous monitoring. Digital rectal examination was normal. Initially the Olympus CF- 160 flexible video colonoscope was then inserted in the rectum, gradually advanced into the cecum without any difficulty. Careful examination was performed as the scope was gradually being withdrawn. Ileocecal valve and the appendiceal orifice were visualized and appeared normal. Prep was excellent. Mucosa of the cecum, ascending colon, transverse colon, descending colon, sigmoid colon, and rectum appeared normal. Retroflexion was performed in the rectum and no lesions were seen. The patient tolerated the procedure well. IMPRESSION: Normal-appearing colon from rectum to cecum with no evidence of colorectal neoplasia . RECOMMENDATIONS: Findings of this examination were discussed with the patient as well as a family. She was advised to have a repeat screening colonoscopy in 10 years.
[2018-07-01 09:46] VITALS: RESP 16
[2018-07-01 10:04] VITALS: BP 128/68; PULSE 77
== END 2018-07-01 10:20 | disposition home or self-care (01) ==
LOC: ORWHC2ENDO 08:17
PROVIDERS: ATTEND Internal Medicine Gastroenterology
DX: Z12.11 Encounter for screening for malignant neoplasm of colon (principal); F41.9 Anxiety disorder, unspecified; F32.9 Major depressive disorder, single episode, unspecified; Z79.890 Hormone replacement therapy; Z79.899 Other long term (current) drug therapy; Z88.1 Allergy status to other antibiotic agents; Z91.040 Latex allergy status; Z91.09 Other allergy status, other than to drugs and biological substances
CPT/HCPCS: G0121; J2001; J2704; 45378

== ENCOUNTER → 2018-07-20 | Outpatient (CLI) | payer OTHER ==
--- NOTE | 2018-07-21 09:34 | MM ---
Reason for exam: screening (asymptomatic). Last mammogram was performed 1 year and 8 months ago. History: Patient is postmenopausal. Family history of breast cancer in 3 maternal aunts. Benign excisional biopsy, February 16, 1997. Physical Findings: A clinical breast exam by your physician is recommended on an annual basis and results should be correlated with mammographic findings. MG Screening Mammo w CAD Bilateral CC and MLO view(s) were taken. Prior study comparison: November 11, 2016, bilateral MG screening mammo w CAD. August 14, 2015, bilateral MG screening mammo w CAD. The breast tissue is heterogeneously dense. This may lower the sensitivity of mammography. There is no discrete abnormality. No significant changes when compared with prior studies. ASSESSMENT: Negative, BI-RAD 1 RECOMMENDATION: Routine screening mammogram of both breasts in 1 year.
== END | disposition home or self-care (01) ==
LOC: RADMAMWWP 12:58
PROVIDERS: ATTEND Obstetrics & Gynecology
DX: Z12.31 Encounter for screening mammogram for malignant neoplasm of breast (principal)
CPT/HCPCS: 77067

== ENCOUNTER → 2018-09-01 | Outpatient (CLI) | payer OTHER | END | disposition home or self-care (01) | LOC: LABWHC1 10:38 | PROVIDERS: ATTEND Psychiatry & Neurology Neurology | DX: I49.9 Cardiac arrhythmia, unspecified (principal) | CPT/HCPCS: 36415; 93005 ==

== ENCOUNTER → 2019-03-18 | Outpatient (CLI) | payer OTHER | END | disposition home or self-care (01) | LOC: LABWHC1 10:32 | PROVIDERS: ATTEND Nurse Practitioner Family | DX: M79.7 Fibromyalgia (principal); Z79.899 Other long term (current) drug therapy | CPT/HCPCS: 36415; 93005 ==

== ENCOUNTER → 2019-06-22 | Outpatient (CLI) | payer OTHER ==
--- NOTE | 2019-06-22 09:22 | CT ---
EXAMINATION TYPE: CT sinus wo con DATE OF EXAM: 06/22/2019 COMPARISON: 08/06/2012 HISTORY: 54-year-old female Acute sinusitis CT DLP: 649.5 mGycm Automated exposure control for dose reduction was used. TECHNIQUE: Noncontrast axial views of the paranasal sinuses were obtained. Coronal reconstructions pe rformed. FINDINGS: PARANASAL SINUSES: Scattered mild mucosal thickening bilateral maxillary sinuses. Small polyp or mucosal retention cyst measuring 1.1 cm along the floor of the left maxillary sinus. Trace mucosal thickening left sphenoid sinus and floors of the frontal sinuses. Ethmoid air cells well pneumatized. There is no air-fluid level. Reactive pinky- osteogenesis is not seen. There is no destruction of the osseous musa of the paranasal sinuses. THE NASAL CAVITY: The osteomeatal complexes are patent. Slight rightward nasal septal deviation. The imaged brain and orbits are normal in appearance. The partially visualized mastoid air cells and middle ear cavities are well pneumatized. Reformatted images confirm above findings. IMPRESSION: 1. Scattered trace mucosal thickening. Mild within the maxillary sinuses. Small polyp or mucosal rete ntion cyst along the floor of the left maxillary sinus. 2. Slight rightward nasal septal deviation.
== END | disposition home or self-care (01) ==
LOC: RADCTMAIN 08:19
PROVIDERS: ATTEND Family Medicine
DX: J34.2 Deviated nasal septum (principal); J32.0 Chronic maxillary sinusitis
CPT/HCPCS: 70486

== ENCOUNTER 2019-08-22 23:52 | Emergency (ER) | payer OTHER ==
[2019-08-22 23:58] VITALS: RESP 18; TEMP 97.9
[2019-08-23] MEDS ORDERED: SODIUM CHLORIDE 0.9% 1,000 ML IV STA (00:37)
[2019-08-23] MEDS ORDERED: ONDANSETRON 4 MG/2 ML VIAL IVP STA (00:37)
[2019-08-23] MEDS ORDERED: KETOROLAC 30 MG/ML 1 ML VIAL IVP STA (00:37)
--- NOTE | 2019-08-23 00:54 | ED ---
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 She states that she ate dinner which consisted of baked beans and shortly afterwards she began having the abdominal pain. She denies any radiation of the pain. Admits to feeling nauseated without vomiting. She is still passing flatus. Had a bowel movement yesterday which was normal in color and consistency for her. Denies any melenic stools or hematochezia. No diarrhea or constipation. Normally does not go daily. Denies dysuria, hematuria did clean voiding. No back or flank pain. No surgical complications from her Harpreet-en-Y. Denies fevers or chills. No chest pain or shortness of breath. There are no alleviating, precipitating or modifying factors - Related Data Home Medications Medication Instructions Recorded Confirmed ALPRAZolam [Xanax] 1 mg PO TID PRN 12/09/13 06/29/18 Meclizine [Antivert] 25 mg PO TID PRN 02/01/15 06/29/18 Levothyroxine Sodium [Levoxyl] 75 mcg PO DAILY 05/19/15 06/29/18 Albuterol Inhaler (Bulk) [Ventolin 1 - 2 puff INHALATION RT-Q6H PRN 12/01/15 06/29/18 Hfa Inhaler (Bulk)] FLUoxetine HCL [PROzac] 80 mg PO DAILY 03/20/16 06/29/18 Cholecalciferol [Vitamin D3] 1,000 unit PO DAILY 06/13/16 06/29/18 Multivitamins, Thera [Multivitamin] 1 tab PO DAILY 06/13/16 06/29/18 Vitamin A 1 tab PO DAILY 06/13/16 06/29/18 Cetirizine HCl [Zyrtec] 10 mg PO DAILY 03/03/17 06/29/18 Omeprazole 20 mg PO DAILY 03/03/17 06/29/18 Cyclobenzaprine [Flexeril] 10 mg PO BID PRN 03/25/18 06/29/18 Fluconazole [Diflucan] 150 mg PO DAILY PRN 03/25/18 06/29/18 Glucosam/Issac-Msm1/C/Best/Bosw 1 tab PO DAILY 03/25/18 06/29/18 [Glucosamine-Chondroitin Tablet] Ibuprofen [Motrin] 600 mg PO Q8HR PRN 03/25/18 06/29/18 Calcium Gummy 1 tab PO DAILY 06/29/18 06/29/18 Ferrous Sulfate [Feosol] 325 mg PO Q48H 06/29/18 06/29/18 Allergies Allergy/AdvReac Type Severity Reaction Status Date / Time marijuana Allergy Unknown Swelling, Verified 08/22/19 23:58 Hives, Dyspnea ciprofloxacin HCl Allergy Anaphylaxis Verified 08/22/19 23:58 [From Cipro] Latex, Natural Rubber Allergy Rash/Hives Verified 08/22/19 23:58 ofloxacin [From Floxin] Allergy Anaphylaxis Verified 08/22/19 23:58 potassium clavulanate Allergy Unknown Verified 08/22/19 23:58 [From Augmentin] silicone Allergy Dyspnea,ITC Verified 08/22/19 23:58 REGGIE shellfish derived [Shrimp] AdvReac LOOSE Verified 08/22/19 23:58 STOOLS EMGALITY Allergy Unknown Hives, Uncoded 08/22/19 23:58 Swelling, Dyspnea, wheezing raw egg Allergy Dyspnea, Uncoded 08/22/19 23:58 THROAT SWELLING SILICONE Allergy Rash/Hives Uncoded 08/22/19 23:58 Review of Systems ROS Statement: Those systems with pertinent positive or pertinent negative responses have been documented in the HPI. ROS Other: All systems not noted in ROS Statement are negative. Past Medical History Past Medical History: Asthma, GERD/Reflux, Hypertension, Neurologic Disorder, Osteoarthritis (OA), Seizure Disorder, Thyroid Disorder Additional Past Medical History / Comment(s): HX OF SEIZURE X1 (FEB 2018)., FREQUENT DIARRHEA, MIGRAINES., STATES PREVIOUS MEDS FOR HTN- RESOLVED WITH WT LOSS., VERTIGO, BACK PAIN., STATES SYMPTOMS LIKE M.S. (WHITE MATTER LESIONS AND SYMPTOMS SUCH OCCASIONAL JERKING, DROOLING, NEUROPATHY.)., ANEMIA, ADULT ACNE., HYPOGLYCEMIA. History of Any Multi-Drug Resistant Organisms: None Reported Past Surgical History: Bariatric Surgery, Breast Surgery, Cholecystectomy, Hysterectomy, Tonsillectomy, Uterine Ablation Additional Past Surgical History / Comment(s): r breast calcification removed, fatty tumor removed from scalp, 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 Past Anesthesia/Blood Transfusion Reactions: Family History of Problems w/ Anesthesia, Motion Sickness Additional Past Anesthesia/Blood Transfusion Reaction / Comment(s): VERTIGO. DAUGHTER HAS PONV Past Psychological History: Anxiety, Depression, Panic Disorder Smoking Status: Former smoker Past Alcohol Use History: Rare Past Drug Use History: None Reported - Past Family History Father Family Medical History: Cancer Additional Family Medical History / Comment(s): lung cancer with brain mets General Exam Limitations: no limitations Course Vital Signs 08/22/19 08/23/19 23:55 02:09 Temperature 97.9 F Pulse Rate 64 66 Respiratory 18 18 Rate Blood Pressure 148/105 120/76 O2 Sat by Pulse 100 98 Oximetry Medical Decision Making - Medical Decision Making Upon arrival the patient is placed into room 6. A thorough history and physical exam was performed. Patient reports markedly improved symptoms at this time. Because of the patient's previous gastric surgery I did recommend laboratory studies and a CT of the patient's abdomen. She is requesting something for pain at this time. She was given 15 mg of Toradol IV. I also provided patient with 500 mL of normal saline. Laboratory studies demonstrate a lactic acid 2.3, lipase of 827. Urinalysis shows rare bacteria however this is not a clean catch with [address] of the patient's abdomen and pelvis with IV contrast demonstrates normal appendix, mild constipation. Study is read by Dr. Oconnor. The patient is reevaluated and states to complete resolution of her pain with the Toradol. I did discuss laboratory studies and imaging results. I did recommend the patient be discharged home at this time and follow up with primary care physician within 2-4 days. The patient should have a repeat draw of her lipase level. I recommended increased fluid intake with decreased diet high in fats. Return to the emergency department for any new or worsening symptoms. Patient did agree to this was discharged home in stable condition - Lab Data Result diagrams: 08/23/19 00:48 08/23/19 00:48 Lab Results 08/23/19 08/23/19 08/23/19 Range/Units 00:48 00:48 00:48 WBC 9.0 (3.8-10.6) k/uL RBC 4.56 (3.80-5.40) m/uL Hgb 13.5 (11.4-16.0) gm/dL Hct 41.0 (34.0-46.0) % MCV 90.0 (80.0-100.0) fL MCH 29.6 (25.0-35.0) pg MCHC 32.9 (31.0-37.0) g/dL RDW 13.3 (11.5-15.5) % Plt Count 202 (150-450) k/uL Neutrophils % 65 % Lymphocytes % 26 % Monocytes % 6 % Eosinophils % 2 % Basophils % 0 % Neutrophils # 5.9 (1.3-7.7) k/uL Lymphocytes # 2.3 (1.0-4.8) k/uL Monocytes # 0.5 (0-1.0) k/uL Eosinophils # 0.2 (0-0.7) k/uL Basophils # 0.0 (0-0.2) k/uL Sodium 136 L (137-145) mmol/L Potassium 4.3 (3.5-5.1) mmol/L Chloride 104 (98-107) mmol/L Carbon Dioxide 24 (22-30) mmol/L Anion Gap 8 mmol/L BUN 14 (7-17) mg/dL Creatinine 0.48 L (0.52-1.04) mg/dL Est GFR (CKD-EPI)AfAm >90 (>60 ml/min/1.73 sqM) Est GFR (CKD-EPI)NonAf >90 (>60 ml/min/1.73 sqM) Glucose 113 H (74-99) mg/dL Plasma Lactic Acid John 2.3 H* (0.7-2.0) mmol/L Calcium 9.0 (8.4-10.2) mg/dL Total Bilirubin 0.2 (0.2-1.3) mg/dL AST 31 (14-36) U/L ALT 31 (4-34) U/L Alkaline Phosphatase 80 (38-126) U/L Total Protein 6.1 L (6.3-8.2) g/dL Albumin 4.0 (3.5-5.0) g/dL Lipase 827 H (23-300) U/L Urine Color Urine Appearance (Clear) Urine pH (5.0-8.0) Ur Specific [address] (1.001-1.035) Urine Protein (Negative) Urine Glucose (UA) (Negative) Urine Ketones (Negative) Urine Blood (Negative) Urine Nitrite (Negative) Urine Bilirubin (Negative) Urine Urobilinogen (<2.0) mg/dL Ur Leukocyte Esterase (Negative) Urine RBC (0-5) /hpf Urine WBC (0-5) /hpf Ur Squamous Epith Cells (0-4) /hpf Urine Bacteria (None) /hpf Urine Mucus (None) /hpf 08/23/19 Range/Units 01:00 WBC (3.8-10.6) k/uL RBC (3.80-5.40) m/uL Hgb (11.4-16.0) gm/dL Hct (34.0-46.0) % MCV (80.0-100.0) fL MCH (25.0-35.0) pg MCHC (31.0-37.0) g/dL RDW (11.5-15.5) % Plt Count (150-450) k/uL Neutrophils % % Lymphocytes % % Monocytes % % Eosinophils % % Basophils % % Neutrophils # (1.3-7.7) k/uL Lymphocytes # (1.0-4.8) k/uL Monocytes # (0-1.0) k/uL Eosinophils # (0-0.7) k/uL Basophils # (0-0.2) k/uL Sodium (137-145) mmol/L Potassium (3.5-5.1) mmol/L Chloride (98-107) mmol/L Carbon Dioxide (22-30) mmol/L Anion Gap mmol/L BUN (7-17) mg/dL Creatinine (0.52-1.04) mg/dL Est GFR (CKD-EPI)AfAm (>60 ml/min/1.73 sqM) Est GFR (CKD-EPI)NonAf (>60 ml/min/1.73 sqM) Glucose (74-99) mg/dL Plasma Lactic Acid John (0.7-2.0) mmol/L Calcium (8.4-10.2) mg/dL Total Bilirubin (0.2-1.3) mg/dL AST (14-36) U/L ALT (4-34) U/L Alkaline Phosphatase (38-126) U/L Total Protein (6.3-8.2) g/dL Albumin (3.5-5.0) g/dL Lipase (23-300) U/L Urine Color Yellow Urine Appearance Cloudy H (Clear) Urine pH 6.0 (5.0-8.0) Ur Specific [address] 1.020 (1.001-1.035) Urine Protein Negative (Negative) Urine Glucose (UA) Negative (Negative) Urine Ketones Negative (Negative) Urine Blood Negative (Negative) Urine Nitrite Negative (Negative) Urine Bilirubin Negative (Negative) Urine Urobilinogen <2.0 (<2.0) mg/dL Ur Leukocyte Esterase Negative (Negative) Urine RBC 1 (0-5) /hpf Urine WBC 1 (0-5) /hpf Ur Squamous Epith Cells 20 H (0-4) /hpf Urine Bacteria Rare H (None) /hpf Urine Mucus Rare H (None) /hpf - EKG Data EKG Comments: EKG has baseline artifact in V1, aVR and aVF. It demonstrates a ventricular rate of 61. SC interval of 196. QRS 94. QTC of 438. No acute ST segment elevations or depressions concerning for ischemic changes Disposition Clinical Impression: Abdominal pain, Hx of gastric bypass, Elevated lipase, Constipation Disposition: HOME SELF-CARE Condition: Stable Instructions (If sedation given, give patient instructions): Abdominal Pain (ED) Additional Instructions: Please follow-up with your doctor and have your lipase level reevaluated at the end of this week. Return to the emergency room for any new or worsening symptoms. Please increase your fluid intake Is patient prescribed a controlled substance at d/c from ED?: No Referrals: Wayne Haro DO [Primary Care Provider] - 1-2 days Time of Disposition: 02:02
[2019-08-23 01:01] LABS: Basophils % (A) 0 %; Eosinophils # (A) 0.2 k/uL (0-0.7); Eosinophils % (A) 2 %; HGB 13.5 gm/dL (11.4-16.0); Lymphocytes # (A) 2.3 k/uL (1.0-4.8); Lymphocytes % (A) 26 %; MCH 29.6 pg (25.0-35.0); MCHC 32.9 g/dL (31.0-37.0); Mean Platelet Volume 7.9; Monocytes # (A) 0.5 k/uL (0-1.0); Monocytes % (A) 6 %; Neutrophils # (A) 5.9 k/uL (1.3-7.7); Neutrophils % (A) 65 %; Platelet Count 202 k/uL (150-450); RBC 4.56 m/uL (3.80-5.40); RDW 13.3 % (11.5-15.5)
[2019-08-23 01:10] LABS: ALT 31 U/L (4-34); AST 31 U/L (14-36); African American GFR (CKD) >90 (>60 ml/min/1.73 sqM); Alkaline Phosphatase 80 U/L (38-126); Anion Gap 8 mmol/L; Blood Urea Nitrogen 14 mg/dL (7-17); Carbon Dioxide 24 mmol/L (22-30); Chloride 104 mmol/L (98-107); Glucose 113 mg/dL (74-99); Non-African American GFR(CKD) >90 (>60 ml/min/1.73 sqM); Potassium 4.3 mmol/L (3.5-5.1); Sodium 136 mmol/L (137-145); Total Bilirubin 0.2 mg/dL (0.2-1.3); Total Protein 6.1 g/dL (6.3-8.2)
[2019-08-23 01:11] LABS: Appearance,Urine Cloudy (Clear); Bacteria,Urine Rare /hpf; Bilirubin,Urine Negative (Negative); Blood,Urine Negative (Negative); Color,Urine Yellow; Glucose,Urine (UA) Negative (Negative); Ketones,Urine Negative (Negative); Leukocyte Esterase,Urine Negative (Negative); Mucus,Urine Rare /hpf; Nitrite,Urine Negative (Negative); Protein,Urine Negative (Negative); RBC,Urine 1 /hpf (0-5); Squamous Epithelial Cell,Urine 20 /hpf (0-4); Urobilinogen,Urine <2.0 mg/dL (<2.0); WBC,Urine 1 /hpf (0-5)
--- NOTE | 2019-08-23 01:50 | CT ---
EXAMINATION TYPE: CT abdomen pelvis w con DATE OF EXAM: 08/23/2019 COMPARISON: None HISTORY: Epigastric pain CT DLP: 1788.8 mGycm Automated exposure control for dose reduction was used. CONTRAST: Performed with IV Contrast, patient injected with 100 mL of Isovue 300. lung bases are clear of infiltrate. There is no pleural effusion. Heart size is normal. There is no pericardial effusion. There are clips from gastric bariatric surgery. Liver spleen pancreas appear normal. There are clips from cholecystectomy. The bile ducts are not dilated. There is no adrenal mass. Kidneys show satisfactory contrast opacification. There is no hydronephrosi s. Appendix appears normal. Ureters are not dilated. There is no retroperitoneal adenopathy. There is mild retained fecal material in the large bowel. Bladder distends smoothly. There is no evidence of a pelvic mass. There is no free fluid in the pelvis. There is hysterectomy. There is no mesenteric edema. There is no ascites or free air. I see no sign of bowel obstruction. Eloisa mbar spine is intact. There is no compression fracture. Bony structures are intact. IMPRESSION: Normal appendix. Mild constipation. Otherwise negative exam.
[2019-08-23 02:13] VITALS: BP 120/76; PULSE 66
== END 2019-08-23 02:13 | disposition home or self-care (01) ==
LOC: EC 23:52
DX: K59.00 Constipation, unspecified (principal); R74.8 Abnormal levels of other serum enzymes; Z98.84 Bariatric surgery status; F41.0 Panic disorder [episodic paroxysmal anxiety]; F32.9 Major depressive disorder, single episode, unspecified; J45.909 Unspecified asthma, uncomplicated; K21.9 Gastro-esophageal reflux disease without esophagitis; I10 Essential (primary) hypertension; Z79.899 Other long term (current) drug therapy; Z79.890 Hormone replacement therapy; Z91.048 Other nonmedicinal substance allergy status; Z88.1 Allergy status to other antibiotic agents; Z91.040 Latex allergy status; Z91.013 Allergy to seafood; Z91.012 Allergy to eggs; Z88.8 Allergy status to other drugs, medicaments and biological substances; Z87.891 Personal history of nicotine dependence; Z90.49 Acquired absence of other specified parts of digestive tract
CPT/HCPCS: 36415; 93005; 80053; 83605; 83690; 85025; 81001; 74177; 99284; 96374; 96375; 96361; J2405; J1885; Q9967

== ENCOUNTER → 2019-11-25 | Outpatient (CLI) | payer OTHER ==
--- NOTE | 2019-11-26 02:54 | MR ---
EXAMINATION TYPE: MR brain wo/w con DATE OF EXAM: 11/25/2019 COMPARISON: 01/10/2018 HISTORY: headache, White matter changes, MS?, Migrains CONTRAST: Standard multiplanar, multisequence MRI departmental protocol utilizing 10 mL intravenous Gadavist ga dolinium contrast. There is minimal cerebral cortical atrophy. There is no mass effect nor midline shift. There is no si gn of intracranial hemorrhage. I see no evidence of a cortical infarct. There are multiple foci of wh ite matter increased signal at the harvey-white matter junction of both cerebral hemispheres. Total num norberto is approximately 20 and the largest measures 7 mm. Most of the lesions are less than 5 mm. Brains tem appears intact. There is no evidence of a posterior fossa mass. I see no white matter lesions in the corpus callosum. Sella turcica appears intact. There is no evidence of sellar mass. There is no p athologic enhancement. There is normal enhancement of the venous sinuses. IMPRESSION: Multiple scattered white matter high signal foci as above appear not significantly different than old exam. There is sparing of the corpus callosum and this is more likely related to chronic small vesse l ischemia. Demyelinating disease not excluded.
== END | disposition home or self-care (01) ==
LOC: RADMRIMAIN 13:23
PROVIDERS: ATTEND Psychiatry & Neurology Neurology
DX: R51 Headache (principal); R90.82 White matter disease, unspecified
CPT/HCPCS: 70553; A9585

== ENCOUNTER → 2020-05-17 | Outpatient (CLI) | payer OTHER ==
--- NOTE | 2020-05-17 15:25 | P.PN ---
Subjective Progress Note Date: 05/17/20 DATE OF SERVICE: 05/17/2020 CHIEF COMPLAINT: Follow-up gastric bypass. HISTORY OF PRESENT ILLNESS: Jolie Reilly is a 55-year-old female who is status post gastric bypass 12/11/2015. She is over 4 year out. She comes in with weight gain due multiple social stressors. She comes in with new left upper abdominal pain at her previous incision. She reports her pain has been ongoing for over 2 months. She reports a pulling sensation with movement. She denies any active swelling at the site. She denies dysphagia or reflux. She reports eating moderate sugary foods and snacks. She presents in consultation. At her height of 5 feet 5 inches, her ideal body weight is 149 pounds. Her highest weight is 274 pounds, BMI 45.7. She comes in weighing 230 pounds from 190 pounds, 4 years ago. She has gained 40 pounds in 4 years. Lifetime weight loss is 44 pounds. Lifetime percent excess weight loss is 36 %. Body mass index is reduced from 45.7 down to 38.3. She is 81 pounds overweight. PAST MEDICAL HISTORY: 1. Morbid obesity due to excess calories, BMI 45.7 2. Asthma. 3. Vertigo. 4. Gastroesophageal reflux disease. 5. Hypertension, resolved. 6. Anxiety. 7. Depression. 8. Hypothyroidism. PAST SURGICAL HISTORY: 1. Breast biopsy. 2. Cholecystectomy. 3. Tonsillectomy. 4. Upper endoscopy. 5. Colonoscopy. 6. Spinal tap. 7. Hysterectomy. 8. Sleep assessment. 9. Adia-en-Y gastric bypass. MEDICATIONS: Home Medications Medication Instructions Recorded Confirmed ALPRAZolam [Xanax] 1 mg PO TID PRN 12/09/13 05/17/20 Meclizine [Antivert] 25 mg PO TID PRN 02/01/15 05/17/20 Levothyroxine Sodium [Levoxyl] 75 mcg PO DAILY 05/19/15 05/17/20 Albuterol Inhaler (Mhu) [Ventolin 1 - 2 puff INHALATION RT-Q6H PRN 12/01/15 05/17/20 Hfa Inhaler (Mhu)] FLUoxetine HCL [PROzac] 80 mg PO DAILY 03/20/16 05/17/20 Cholecalciferol [Vitamin D3] 1,000 unit PO DAILY 06/13/16 05/17/20 Multivitamins, Thera [Multivitamin] 1 tab PO DAILY 06/13/16 05/17/20 Vitamin A 1 tab PO DAILY 06/13/16 05/17/20 Cetirizine HCl [Zyrtec] 10 mg PO DAILY 03/03/17 05/17/20 Omeprazole 20 mg PO DAILY 03/03/17 05/17/20 Cyclobenzaprine [Flexeril] 10 mg PO BID PRN 03/25/18 05/17/20 Fluconazole [Diflucan] 150 mg PO DAILY PRN 03/25/18 05/17/20 Glucosam/Issac-Msm1/C/Best/Bosw 1 tab PO DAILY 03/25/18 05/17/20 [Glucosamine-Chondroitin Tablet] Ibuprofen [Motrin] 600 mg PO Q8HR PRN 03/25/18 05/17/20 Calcium Gummy 1 tab PO DAILY 06/29/18 05/17/20 Ferrous Sulfate [Feosol] 325 mg PO Q48H 06/29/18 05/17/20 ALLERGIES: Allergies Allergy/AdvReac Type Severity Reaction Status Date / Time marijuana Allergy Unknown Swelling, Verified 05/17/20 16:48 Hives, Dyspnea ciprofloxacin HCl Allergy Anaphylaxis Verified 05/17/20 16:48 [From Cipro] Latex, Natural Rubber Allergy Rash/Hives Verified 05/17/20 16:48 ofloxacin [From Floxin] Allergy Anaphylaxis Verified 05/17/20 16:48 potassium clavulanate Allergy Unknown Verified 05/17/20 16:48 [From Augmentin] silicone Allergy Dyspnea,ITC Verified 05/17/20 16:48 REGGIE shellfish derived [Shrimp] AdvReac LOOSE Verified 05/17/20 16:48 STOOLS EMGALITY Allergy Unknown Hives, Uncoded 05/17/20 16:48 Swelling, Dyspnea, wheezing raw egg Allergy Dyspnea, Uncoded 05/17/20 16:48 THROAT SWELLING SILICONE Allergy Rash/Hives Uncoded 05/17/20 16:48 SOCIAL HISTORY: Former tobacco user. Also former alcohol use. Past history of drug abuse. FAMILY HISTORY: Notable for lung cancer. REVIEW OF SYSTEMS: CARDIOVASCULAR: She has discontinued lisinopril including blood pressure medications. RESPIRATORY: She has resolved obstructive sleep apnea. Has asthma. CONSTITUTIONAL: At her height of 5 feet 5 inches, her ideal body weight is 149 pounds. Her highest weight is 274 pounds. Body mass index is reduced from 45.7. GASTROINTESTINAL: Improved gastroesophageal reflux disease. Denies dumping syndrome. MUSCULOSKELETAL: Improved knee and hip pain. ENDOCRINE: History of hypothyroidism. No reports of active diabetes. HEENT: Denied any trouble with vision or hearing. Wears glasses. NEURO: Denies any seizure disorder, however, has migraines. Has anxiety. PSYCH: Has depression. No suicidal ideation. HEMATOLOGIC: Denies any personal history or family history of pulmonary emboli or DVTs. SKIN: Has rash and redness from panniculitis. No skin cancer. PHYSICAL EXAM: VITAL SIGNS: 5 feet 5, 230 pounds, body mass index 38.3 Vital Signs Temp 98.5 F 05/17/20 16:45 Pulse 73 05/17/20 16:45 Resp 18 05/17/20 16:45 BP 144/71 05/17/20 16:45 Pulse Ox ABDOMEN: Soft, nondistended. Tender at the left upper quadrant at her previous incision. No large palpable swelling. MUSCULOSKELETAL: No clubbing, cyanosis, or edema. GENERAL: Well-developed female in no acute distress. HEENT: No scleral icterus. Extraocular movements grossly intact. Moist buccal mucosa. NECK: Supple without lymphadenopathy. CHEST: Unlabored respirations with equal bilateral excursion. CARDIOVASCULAR: Regular rate and rhythm. NEURO: No focal or lateralizing signs. Cranial nerves 2 through 12 grossly within normal limits. PSYCH: Appropriate affect. Alert and oriented to person, place and time. SKIN: Good skin turgor. Well-perfused. STUDIES: CT of the abdomen and pelvis for 07/2019 independently reviewed alongside with her demonstrates no internal mesenteric swirl. No small bowel dilation or small bowel obstruction. Findings of small hiatal hernia. Has moderate stool burden. Has moderate small bowel adherent along the left upper quadrant. Small umbilical hernia identified. Small bilateral inguinal hernias identified. This is my independent interpretation. ASSESSMENT: 1. Morbid obesity due to excess calories 2. Body mass index reduced from 45.7 down to 38.3 3. Dietary surveillance and counseling. 4. History of primary snoring, resolved. 5. Depression without suicidal ideation. 6. Fibromyalgia. 7. Hypertensive heart disease without known cardiomyopathy 8. Osteoarthritis of the bilateral knees and lower back, improved. 9. Gastroesophageal reflux disease, improved. 10. Hypothyroidism. 11. Status post Adia-en-Y gastric bypass. 12. Vitamin A deficiency 13. Vitamin D deficiency 14. Hypotension 15. Intermittent dysphagia 16. Panniculitis. 17. History of elevated liver enzymes. 18. Migraines. 19. Food ALLERGIES. 20. Secondary hyperparathyroidism. PLAN: 1. She has left upper quadrant pain with likely peritoneal adhesions including incisional hernia. Recommend robotic incisional hernia repair with possible mesh placement. 2. Recommend bariatric labs. 3. Recommend EKG and recommend cardiac risk assessment and clearance for EKG changes. 4. She is elevated risk for complications due to pre-existing gastric bypass and pain management. 5. Non-narcotic postoperative pain management described with pre-existing opiod management with her pain specialist provider. Objective - Vital Signs Vital signs: Intake & Output 05/16/20 05/17/20 05/17/20 18:59 06:59 18:59 Weight 104.326 kg
[2020-05-17 15:53] VITALS: BMI 38.2
[2020-05-17 16:48] VITALS: BP 144/71; PULSE 73; RESP 18; TEMP 98.5
== END | disposition home or self-care (01) ==
LOC: BARWHC3 14:24
PROVIDERS: ATTEND Surgery Plastic and Reconstructive Surgery
DX: E66.01 Morbid (severe) obesity due to excess calories (principal); F32.9 Major depressive disorder, single episode, unspecified; M79.7 Fibromyalgia; I11.9 Hypertensive heart disease without heart failure; M17.0 Bilateral primary osteoarthritis of knee; M47.9 Spondylosis, unspecified; K21.9 Gastro-esophageal reflux disease without esophagitis; E03.9 Hypothyroidism, unspecified; E50.9 Vitamin A deficiency, unspecified; E55.9 Vitamin D deficiency, unspecified; I95.9 Hypotension, unspecified; R13.10 Dysphagia, unspecified; M79.3 Panniculitis, unspecified; G43.909 Migraine, unspecified, not intractable, without status migrainosus; N25.81 Secondary hyperparathyroidism of renal origin; T78.1XXA Other adverse food reactions, not elsewhere classified, initial encounter; Z98.84 Bariatric surgery status; Z68.38 Body mass index [BMI] 38.0-38.9, adult; Z71.3 Dietary counseling and surveillance; Z88.1 Allergy status to other antibiotic agents; Z91.040 Latex allergy status; Z88.0 Allergy status to penicillin; Z91.013 Allergy to seafood; Z88.8 Allergy status to other drugs, medicaments and biological substances; Z91.048 Other nonmedicinal substance allergy status; Z79.899 Other long term (current) drug therapy; Z79.1 Long term (current) use of non-steroidal anti-inflammatories (NSAID)
CPT/HCPCS: 97803; G0463; 99211

== ENCOUNTER → 2020-05-30 | Outpatient (CLI) | payer OTHER ==
[2020-05-30 18:22] LABS: INR 0.98 (0.90-1.11); Partial Thromboplastin Time 24.1 sec (23.5-31.0); Prothrombin Time 10.7 sec (9.9-11.9)
[2020-05-30 20:23] LABS: % Iron Saturation 30.36 (12.00-45.00); ALT 38 U/L (8-44); AST 30 U/L (13-35); African American GFR (CKD) 120.6 (60.0-200.0); Albumin/Globulin Ratio 3.69 (1.60-3.17); Alkaline Phosphatase 103 U/L (41-126); BUN/Creat Ratio 26.67 Ratio (12.00-20.00); Calcium 9.3 mg/dL (8.7-10.3); Carbon Dioxide 26.1 mmol/L (21.6-31.8); Chloride 109 mmol/L (96-109); Chol/HDL Ratio 3.87; Cholesterol 182 mg/dL (0-200); Globulin 1.3 g/dL (1.6-3.3); Glucose 87 mg/dL (70-110); Iron 109 ug/dL (50-170); LDL Cholesterol,Calculated 104.6 mg/dL (0.0-131.0); Non-African American GFR(CKD) 104.1 (60.0-200.0); Phosphorus 4.2 mg/dL (2.4-5.1); Sodium 144 mmol/L (135-145); Total Bilirubin 0.4 mg/dL (0.3-1.2); Total Iron Binding Capacity 359 ug/dL (228-460); Total Protein 6.1 g/dL (6.2-8.2)
[2020-05-30 20:31] LABS: Ferritin 30.1 ng/mL (10.0-291.0)
[2020-05-30 20:45] LABS: HCT 40.8 % (37.2-46.3); HGB 13.5 g/dL (12.0-15.0); MCH 29.7 pg (27.0-32.0); MCHC 33.1 g/dL (32.0-37.0); MCV 89.9 fL (80.0-97.0); Mean Platelet Volume 12.3 fL (9.5-12.2); Platelet Count 212 X 10*3/uL (140-440); RBC 4.54 X 10*6/uL (4.10-5.20); RDW 12.6 % (11.5-14.5); WBC 5.94 X 10*3/uL (4.50-10.00)
[2020-05-30 20:53] LABS: Folate, Serum >24.0 ng/mL
[2020-05-31 11:50] LABS: Zinc, Serum 87 ug/dL (60-130)
[2020-05-31 12:18] LABS: Vitamin A 60 ug/dL (38-106)
== END | disposition home or self-care (01) ==
LOC: LABWHC1 10:45
PROVIDERS: ATTEND Surgery Plastic and Reconstructive Surgery
DX: E55.9 Vitamin D deficiency, unspecified (principal); E66.01 Morbid (severe) obesity due to excess calories; E89.1 Postprocedural hypoinsulinemia; D50.8 Other iron deficiency anemias; N19 Unspecified kidney failure; K74.1 Hepatic sclerosis; K90.89 Other intestinal malabsorption; K50.90 Crohn's disease, unspecified, without complications
CPT/HCPCS: 36415; 80053; 80061; 82306; 82525; 82607; 82728; 82746; 83036; 83540; 83550; 83735; 83970; 84100; 84134; 84255; 84425; 84443; 84590; 84630; 85027; 85610; 85730

== ENCOUNTER → 2020-06-19 | Day surgery (SDC) | payer OTHER ==
[2020-06-13 16:13] VITALS: BMI 38.2
[~2020-06-19] MED LIST changes: +ACETAMINOPHEN TAB 325 MG TAB PO ONE; +ACETAMINOPHEN TAB 500 MG TAB ONE; +ACETAMINOPHEN TAB 500 MG TAB PO STA; +BUPIVACAINE-EPI 0.5%-1:200,000 10 ML VIAL SQ ONE; +DEXAMETHASONE SOD PHOSPHATE 4 MG/ML 1 ML VIAL IV ONE; +GABAPENTIN 300 MG CAP PO STA; +GLYCOPYRROLATE 0.2 MG/ML 2 ML VIAL ONE; +HEPARIN SODIUM,PORCINE 5,000 UNIT/ML 1 ML VIAL SQ SCH; +HYDROmorphone 0.5 MG/0.5 ML SYRINGE IVP PRN; +KETOROLAC 15 MG/ML 1 ML VIAL ONE; +LACTATED RINGERS 1,000 ML IV ONE; +LIDOCAINE 1% (10MG/ML) FOR IV START INTRADERMA PRN; +LIDOCAINE 1% INJ 10MG/ML (20 ML MDV) ONE; +MIDAZOLAM 2 MG/2 ML VIAL IV ONE; +MIDAZOLAM 2 MG/2 ML VIAL ONE; +NEOSTIGMINE 1 MG/ML 10 ML VIAL ONE; +PHENYLEPHRINE-0.9% NACL SYG 1,000 MCG/10 ML SYRINGE ONE; +PROPOFOL 10 MG/ML 20 ML VIAL IV ONE; +ROCURONIUM 10 MG/ML (5 ML VIAL) IV ONE; +ROPIVACAINE 5 MG/ML 30 ML VIAL ONE; +SCOPOLAMINE 1.5MG/72HR PATCH TRANSDERM ONE; +SCOPOLAMINE 1.5MG/72HR PATCH TRANSDERM STA; +SUCCINYLCHOLINE CHLORIDE 100 MG/5 ML SYR IV ONE; +ePHEDrine SULFATE/0.9% NACL/PF 50 MG/5 ML SYRINGE IV ONE; +fentaNYL (PF) 50 MCG/ML 2 ML AMP ONE
--- NOTE | 2020-06-19 06:14 | P.GSHP ---
History of Present Illness H&P Date: 06/19/20 CHIEF COMPLAINT: History of intra-abdominal adhesions HISTORY OF PRESENT ILLNESS: The patient is a 55-year-old female who presents with history of intra-abdominal adhesions from multiple prior surgeries including increasing abdominal pain. She now presents for diagnostic laparoscopy including lysis of adhesions. PAST MEDICAL HISTORY: Please see list. PAST SURGICAL HISTORY: Please see list. MEDICATIONS: Please see list. ALLERGIES: Please see list. SOCIAL HISTORY: No illicit drug use FAMILY HISTORY: No reports of Crohn disease or ulcerative colitis. REVIEW OF ORGAN SYSTEMS: CONSTITUTIONAL: No reports of fevers or chills. PHYSICAL EXAM: VITAL SIGNS: Stable GENERAL: Well-developed pleasant and in no acute distress. HEENT: No scleral icterus. Extraocular movements grossly intact. Moist buccal mucosa. NECK: Supple without lymphadenopathy. CHEST: Unlabored respirations. Equal bilateral excursions. CARDIOVASCULAR: Regular rate and rhythm. Distal 2+ pulses. ABDOMEN: Soft, diffuse abdominal tenderness. No peritonitis. MUSCULOSKELETAL: No clubbing, cyanosis, or edema. ASSESSMENT: 1. Diffuse abdominal pain. 2. History of multiple abdominal surgeries. 3. Intra-abdominal adhesions. PLAN: 1. Robotic lysis of adhesions were described in detail including risk of injury to the intestine, need for further surgery, and open technique. 2. DVT prophylaxis. 3. Antibiotic prophylaxis. Past Medical History Past Medical History: Asthma, GERD/Reflux, Hypertension, Neurologic Disorder, Osteoarthritis (OA), Seizure Disorder, Thyroid Disorder Additional Past Medical History / Comment(s): HX OF SEIZURE X1 (FEB 2018)., FREQUENT DIARRHEA, MIGRAINES., STATES PREVIOUS MEDS FOR HTN- RESOLVED WITH WT LOSS., VERTIGO, BACK PAIN., STATES SYMPTOMS LIKE M.S. (WHITE MATTER LESIONS AND SYMPTOMS SUCH OCCASIONAL JERKING, DROOLING, NEUROPATHY.)., ANEMIA, ADULT ACNE., HYPOGLYCEMIA. History of Any Multi-Drug Resistant Organisms: None Reported Past Surgical History: Bariatric Surgery, Breast Surgery, Cholecystectomy, Hysterectomy, Tonsillectomy, Uterine Ablation Additional Past Surgical History / Comment(s): r breast calcification removed, fatty tumor removed from scalp, 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 Past Anesthesia/Blood Transfusion Reactions: Family History of Problems w/ Anesthesia, Motion Sickness Additional Past Anesthesia/Blood Transfusion Reaction / Comment(s): VERTIGO. DAUGHTER HAS PONV Smoking Status: Former smoker - Past Family History Father Family Medical History: Cancer Additional Family Medical History / Comment(s): lung cancer with brain mets Medications and Allergies Home Medications Medication Instructions Recorded Confirmed Type ALPRAZolam [Xanax] 1 mg PO TID PRN 12/09/13 06/13/20 History Meclizine [Antivert] 25 mg PO TID PRN 02/01/15 06/13/20 History Levothyroxine Sodium [Levoxyl] 75 mcg PO DAILY 05/19/15 06/13/20 History Albuterol Inhaler (Mhu) [Ventolin 1 - 2 puff INHALATION RT-Q6H PRN 12/01/15 06/13/20 History Hfa Inhaler (Mhu)] FLUoxetine HCL [PROzac] 80 mg PO DAILY 03/20/16 06/13/20 History Cholecalciferol [Vitamin D3] 1,000 unit PO DAILY 06/13/16 06/13/20 History Multivitamins, Thera [Multivitamin] 1 tab PO DAILY 06/13/16 06/13/20 History Vitamin A 1 tab PO DAILY 06/13/16 06/13/20 History Omeprazole 20 mg PO DAILY 03/03/17 06/13/20 History Cyclobenzaprine [Flexeril] 10 mg PO BID PRN 03/25/18 06/13/20 History Fluconazole [Diflucan] 150 mg PO DAILY PRN 03/25/18 06/13/20 History Glucosam/Issac-Msm1/C/Best/Bosw 1 tab PO DAILY 03/25/18 06/13/20 History [Glucosamine-Chondroitin Tablet] Ibuprofen [Motrin] 600 mg PO Q8HR PRN 03/25/18 06/13/20 History Calcium Carbonate [Calcium] 500 mg PO DAILY 06/13/20 06/13/20 History Propranolol HCl 80 mg PO DAILY 06/13/20 06/13/20 History Allergies Allergy/AdvReac Type Severity Reaction Status Date / Time marijuana Allergy Unknown Swelling, Verified 06/13/20 16:00 Hives, Dyspnea ciprofloxacin HCl Allergy Anaphylaxis Verified 06/13/20 16:00 [From Cipro] Latex, Natural Rubber Allergy Rash/Hives Verified 06/13/20 16:00 ofloxacin [From Floxin] Allergy Anaphylaxis Verified 06/13/20 16:00 potassium clavulanate Allergy Unknown Verified 06/13/20 16:00 [From Augmentin] silicone Allergy Dyspnea,ITC Verified 06/13/20 16:00 REGGIE EMGALITY Allergy Unknown Hives, Uncoded 06/13/20 16:00 Swelling, Dyspnea, wheezing raw egg Allergy Dyspnea, Uncoded 06/13/20 16:00 THROAT SWELLING SILICONE Allergy Rash/Hives Uncoded 06/13/20 16:00
[2020-06-19 07:12] VITALS: TEMP 98.5
[2020-06-19] MEDS: ONDANSETRON 4 MG/2 ML VIAL IVP ONE ×2 (07:18→10:17)
[2020-06-19 07:43] LABS: Glucose,Whole Blood 88 mg/dL (75-99)
--- NOTE | 2020-06-19 08:28 | P.ANPRN ---
Procedure Note - Anesthesia - Nerve Block Performed Bilateral Erector Spinae Single Time Out Performed: Yes Date of Procedure: 06/19/20 Procedure Start Time: Procedure Stop Time: Location of Patient: PreOp Indication: Acute Post-Operative Pain, Analgesia, Requested by Surgeon Sedation Type: Sedate with meaningful contact maintained Preparation: Sterile Prep Position: Sitting Catheter: None Needle Types: Pajunk Needle Gauge: 21 Ultrasound used to visualize needle placement: Yes Ultrasound used to observe medication spread: Yes Injectate: Other (see comment) (0.25% marcaine 30cc each side) Blood Aspirated: No Pain Paresthesia on Injection Noted: No Resistance on Injection: Normal Image Stored and Saved: Yes Events: Uneventful and Well Tolerated
[2020-06-19 09:46] VITALS: RESP 16
--- NOTE | 2020-06-19 10:16 | P.OP ---
Date of Procedure: 06/19/20 Description of Procedure: SURGEON: BOBO YAO MD PREOPERATIVE DIAGNOSES: 1. Left upper quadrant abdominal pain 2. Body mass index reduced from 45.7 down to 38.3 3. History of multiple abdominal surgeries 4. Status post Kennedy-en-Y gastric bypass. 5. Depression without suicidal ideation. 6. Fibromyalgia. 7. Hypertensive heart disease without congestive heart failure 8. Osteoarthritis of the bilateral knees and lower back. 9. Gastroesophageal reflux disease 10. Hypothyroidism. 11. Morbid obesity due to excess calories 12. Vitamin A deficiency 13. Vitamin D deficiency 14. Migraines. POSTOPERATIVE DIAGNOSES: 1. Left upper quadrant abdominal pain due to adhesions 2. Body mass index reduced from 45.7 down to 38.3 3. History of multiple abdominal surgeries 4. Status post Kennedy-en-Y gastric bypass. 5. Depression without suicidal ideation. 6. Fibromyalgia. 7. Hypertensive heart disease without congestive heart failure 8. Osteoarthritis of the bilateral knees and lower back. 9. Gastroesophageal reflux disease 10. Hypothyroidism. 11. Morbid obesity due to excess calories 12. Vitamin A deficiency 13. Vitamin D deficiency 14. Migraines. OPERATION: 1. Robotic-assisted da Urbano Xi laparoscopic with lysis of adhesions over 1 hr ESTIMATED BLOOD LOSS: 5 mL. SPECIMENS REMOVED: None. COMPLICATIONS: None. OPERATIVE FINDINGS: 1. No ventral hernias identified. 2. Adhesions at jejunojejunostomy, left upper quadrant 3. Complete scarring of Turcios defect and jejunojejunostomy mesenteric defect 4. Redundant sigmoid colon 5. Abnormal adhesions of biliopancreatic limb jejunostomy to kennedy limb divided 6. Normal terminal ileum and cecum unremarkable. INDICATIONS: The patient is a 55-year-old female who presents with left upper quadrant abdominal pain and history of gastric bypass. Surgical intervention with diagnostic laparoscopy, lysis of adhesions were described. Informed consent was obtained. Robotic assisted laparoscopic approach was described. Benefits and risks of the procedure including but not limited to bleeding, infection, injury to the small bowel was described. Informed consent was obtained. DESCRIPTION OF PROCEDURE: Patient was brought to the operating room, placed in supine position. After general induction, the abdomen had been prepped and draped in standard sterile fashion. The robotic da Urbano XI system was primed. After a timeout protocol was performed, the patient had been prepped and draped in standard sterile fashion. The robot was docked along the right lateral abdomen. The patient was repositioned in with right side up. Please note prior to docking of the robot; however, a 5 mm 0 degrees laparoscopic trocar entry was performed along the left upper quadrant. The abdomen was insufflated to 15 mmHg pressure which she tolerated well. Diagnostic laparoscopy was performed. Next, three 8 mm robotic ports were placed along the right lateral abdominal wall. The camera 8-mm port was maintained along mid-lateral abdomen. Please note that the ports were placed at least 10 to 15 cm away from the target anatomy. Instruments including graspers and vessel sealer were interchanged by the administrative office assistant. I had sat at the console. No evidence of incisional hernia was identified. The rest of the abdomen was unremarkable for small bowel pathology. The small bowel was investigated from the terminal ileum to the ligament of Treitz with finding of abnormal adhesions to the jejunojejunostomy was identified and divided. No herniation of bowel was found along the Turcios defect or jejunojejunostomy mesenteric defect which was completely scarred. After releasing abnormal adhesions of the jejunojejuno stomy, 2-0 VLOC was used to ensure complete closure of jejunojejunostomy mesenteric defect. The sigmoid colon was redundant. The terminal ileum and cecum was unremarkable. Lysis of adhesions using scissors with cautery for an hour was performed. The small bowel was viable.The robot was undocked. All pneumoperitoneum instruments were evacuated from the abdominal cavity. The incisions were reapproximated using 4-0 Monocryl in an interrupted subcuticular fashion. Please note along the trocar sites, local anesthetic was placed as a field block prior to insertion of all instruments. Exofin was applied to the skin. At the end of the procedure needle, sponge, and instrument count had been verified correct by the physics technician. The patient was transferred to postanesthesia care unit in stable condition. Plan - Discharge Summary Discharge Rx Participant: No New Discharge Prescriptions: New Acetaminophen Tab [Tylenol Tab] 1,000 mg PO Q6HR PRN #30 tablet PRN Reason: Pain Continue ALPRAZolam [Xanax] 1 mg PO TID PRN PRN Reason: Anxiety Meclizine [Antivert] 25 mg PO TID PRN PRN Reason: Vertigo Levothyroxine Sodium [Levoxyl] 75 mcg PO DAILY Albuterol Inhaler (Mhu) [Ventolin Hfa Inhaler (Mhu)] 1 - 2 puff INHALATION RT-Q6H PRN PRN Reason: Shortness Of Breath FLUoxetine HCL [PROzac] 80 mg PO DAILY Multivitamins, Thera [Multivitamin (formulary)] 1 tab PO DAILY Cholecalciferol [Vitamin D3 (25 Mcg = 1000 Iu)] 1,000 unit PO DAILY Vitamin A 1 tab PO DAILY Omeprazole 20 mg PO DAILY Fluconazole [Diflucan] 150 mg PO DAILY PRN PRN Reason: YEAST INFECTION Cyclobenzaprine [Flexeril] 10 mg PO BID PRN PRN Reason: Muscle Spasm Glucosam/Issac-Msm1/C/Best/Bosw [Glucosamine-Chondroitin Tablet] 1 tab PO DAILY Propranolol HCl 80 mg PO DAILY Calcium Carbonate [Calcium] 500 mg PO DAILY Discontinued Ibuprofen [Motrin] 600 mg PO Q8HR PRN PRN Reason: Pain Discharge Medication List ALPRAZolam [Xanax] 1 mg PO TID PRN 12/09/13 [History] Meclizine [Antivert] 25 mg PO TID PRN 02/01/15 [History] Levothyroxine Sodium [Levoxyl] 75 mcg PO DAILY 05/19/15 [History] Albuterol Inhaler (Mhu) [Ventolin Hfa Inhaler (u)] 1 - 2 puff INHALATION RT- Q6H PRN 12/01/15 [History] FLUoxetine HCL [PROzac] 80 mg PO DAILY 03/20/16 [History] Cholecalciferol [Vitamin D3 (25 Mcg = 1000 Iu)] 1,000 unit PO DAILY 06/13/16 [History] Multivitamins, Thera [Multivitamin (formulary)] 1 tab PO DAILY 06/13/16 [History] Vitamin A 1 tab PO DAILY 06/13/16 [History] Omeprazole 20 mg PO DAILY 03/03/17 [History] Cyclobenzaprine [Flexeril] 10 mg PO BID PRN 03/25/18 [History] Fluconazole [Diflucan] 150 mg PO DAILY PRN 03/25/18 [History] Glucosam/Issac-Msm1/C/Best/Bosw [Glucosamine-Chondroitin Tablet] 1 tab PO DAILY 03/25/18 [History] Calcium Carbonate [Calcium] 500 mg PO DAILY 06/13/20 [History] Propranolol HCl 80 mg PO DAILY 06/13/20 [History] Acetaminophen Tab [Tylenol Tab] 1,000 mg PO Q6HR PRN #30 tablet 06/19/20 [Rx] [facility]ment(s[facility]Ref[facility] [place] [facility] Patient Instructions/Handouts: *[facility] - Managing Your Pain After Surgery Without Opioids, *[facility] - (Anesthesia) Discharge Instructions Outpatient Surgery, *[facility] - Scopalamine Patch Instructions, Lysis of Abdominal Adhesions (DC) Activity/Diet/Wound Care/Special Instructions: No lifting over 10 pounds in 2 weeks until July 03. May shower. No bath tub soaks for two weeks until July 03. Diet as tolerated. Use Tylenol scheduled for the next 24-48 hours for best pain relief. Use ice along incisions for today to prevent swelling. Discharge Disposition: HOME SELF-CARE
[2020-06-19 11:12] VITALS: BP 114/80; PULSE 66
== END | disposition home or self-care (01) ==
LOC: OR 06:03
PROVIDERS: ATTEND Surgery Plastic and Reconstructive Surgery
DX: K66.0 Peritoneal adhesions (postprocedural) (postinfection) (principal); Q43.8 Other specified congenital malformations of intestine; F32.9 Major depressive disorder, single episode, unspecified; M79.7 Fibromyalgia; I11.9 Hypertensive heart disease without heart failure; M17.0 Bilateral primary osteoarthritis of knee; M47.897 Other spondylosis, lumbosacral region; K21.9 Gastro-esophageal reflux disease without esophagitis; E03.9 Hypothyroidism, unspecified; E66.01 Morbid (severe) obesity due to excess calories; E50.9 Vitamin A deficiency, unspecified; E55.9 Vitamin D deficiency, unspecified; J45.909 Unspecified asthma, uncomplicated; L70.9 Acne, unspecified; E16.2 Hypoglycemia, unspecified; K08.109 Complete loss of teeth, unspecified cause, unspecified class; F41.9 Anxiety disorder, unspecified; Z98.890 Other specified postprocedural states; Z86.69 Personal history of other diseases of the nervous system and sense organs; Z87.19 Personal history of other diseases of the digestive system; Z86.2 Personal history of diseases of the blood and blood-forming organs and certain disorders involving the immune mechanism; Z98.84 Bariatric surgery status; Z90.49 Acquired absence of other specified parts of digestive tract; Z90.710 Acquired absence of both cervix and uterus; Z90.89 Acquired absence of other organs; Z84.89 Family history of other specified conditions; Z87.898 Personal history of other specified conditions; Z87.891 Personal history of nicotine dependence; Z79.899 Other long term (current) drug therapy; Z79.890 Hormone replacement therapy; Z79.1 Long term (current) use of non-steroidal anti-inflammatories (NSAID); Z88.8 Allergy status to other drugs, medicaments and biological substances; Z88.1 Allergy status to other antibiotic agents; Z91.040 Latex allergy status; Z88.0 Allergy status to penicillin; Z91.09 Other allergy status, other than to drugs and biological substances; Z91.012 Allergy to eggs; Z80.1 Family history of malignant neoplasm of trachea, bronchus and lung; Z80.8 Family history of malignant neoplasm of other organs or systems; Z68.38 Body mass index [BMI] 38.0-38.9, adult
CPT/HCPCS: 64999; 76942

== ENCOUNTER → 2020-06-23 | Outpatient (CLI) | payer OTHER ==
[2020-06-23 10:02] VITALS: BP 126/84; PULSE 86; TEMP 98.5; BMI 38.7
--- NOTE | 2020-06-23 11:08 | P.PN ---
Subjective Progress Note Date: 06/23/20 DATE OF SERVICE: 06/23/2020 CHIEF COMPLAINT: Status post lysis of adhesions HISTORY OF PRESENT ILLNESS: Jolie Reilly is a 55-year-old female who is status post gastric bypass 12/11/2015. She is over 5 years out. She is status post lysis of adhesions, 06/19/2020. Her previous abdominal pain is completely resolved with regards to findings of adhesions affecting her jejunojejunostomy. She only complains of mild incisional discomfort. She is eager to loose weight and exercise. She does report a moderate sized pannus. At her height of 5 feet 5 inches, her ideal body weight is 149 pounds. Her highest weight is 274 pounds, BMI 45.7. She comes in weighing 230 pounds from 190 pounds, 4 years ago. She has gained 40 pounds in 4 years. Lifetime weight loss is 44 pounds. Lifetime percent excess weight loss is 36 %. Body mass index is reduced from 45.7 down to 38.3. She is 81 pounds overweight. PHYSICAL EXAM: VITAL SIGNS: 5 feet 5, 233 pounds, body mass index 38.8 Vital Signs Temp 98.5 F 06/23/20 09:50 Pulse 86 06/23/20 09:50 Resp BP 126/84 06/23/20 09:50 Pulse Ox ABDOMEN: Soft, nondistended. Incisions are clean, dry and intact. No cellulitis. MUSCULOSKELETAL: No clubbing, cyanosis, or edema. GENERAL: Well-developed female in no acute distress. HEENT: No scleral icterus. Extraocular movements grossly intact. Moist buccal mucosa. NECK: Supple without lymphadenopathy. CHEST: Unlabored respirations with equal bilateral excursion. CARDIOVASCULAR: Regular rate and rhythm. NEURO: No focal or lateralizing signs. Cranial nerves 2 through 12 grossly within normal limits. PSYCH: Appropriate affect. Alert and oriented to person, place and time. SKIN: Good skin turgor. Well-perfused. ASSESSMENT: 1. Morbid obesity due to excess calories 2. Body mass index reduced from 45.7 down to 38.8 3. Dietary surveillance and counseling. 4. History of primary snoring, resolved. 5. Depression without suicidal ideation. 6. Fibromyalgia. 7. Hypertensive heart disease 8. Osteoarthritis of the bilateral knees and lower back 9. Gastroesophageal reflux disease 10. Hypothyroidism. 11. Status post Adia-en-Y gastric bypass. 12. Vitamin A deficiency 13. Vitamin D deficiency 14. Hypotension 15. Intermittent dysphagia 16. Panniculitis. 17. History of elevated liver enzymes. 18. Migraines. 19. Food ALLERGIES. 20. Secondary hyperparathyroidism. 21. Peritoneal adhesions. PLAN: 1. Recommend follow-up in 2 weeks with food diary external. 2. Recommend next phase of weight loss management including dietary surveillance. A 2 week protein diet is described. 3. Overall she is pleased with her surgical response. Objective - Vital Signs Vital signs: Vital Signs Temp 98.5 F 06/23/20 09:50 Pulse 86 06/23/20 09:50 Resp BP 126/84 06/23/20 09:50 Pulse Ox Intake & Output 06/22/20 06/23/20 06/23/20 18:59 06:59 18:59 Weight 105.687 kg
== END | disposition home or self-care (01) ==
LOC: BARWHC3 08:49
PROVIDERS: ATTEND Surgery Plastic and Reconstructive Surgery
DX: E66.01 Morbid (severe) obesity due to excess calories (principal); T78.1XXD Other adverse food reactions, not elsewhere classified, subsequent encounter; F32.9 Major depressive disorder, single episode, unspecified; M79.7 Fibromyalgia; I11.9 Hypertensive heart disease without heart failure; M17.0 Bilateral primary osteoarthritis of knee; M47.816 Spondylosis without myelopathy or radiculopathy, lumbar region; E03.9 Hypothyroidism, unspecified; E50.9 Vitamin A deficiency, unspecified; K21.9 Gastro-esophageal reflux disease without esophagitis; E55.9 Vitamin D deficiency, unspecified; K66.0 Peritoneal adhesions (postprocedural) (postinfection); R13.10 Dysphagia, unspecified; M79.3 Panniculitis, unspecified; Z71.3 Dietary counseling and surveillance; Z68.38 Body mass index [BMI] 38.0-38.9, adult; G43.909 Migraine, unspecified, not intractable, without status migrainosus; Z98.84 Bariatric surgery status; Z79.890 Hormone replacement therapy; Z79.899 Other long term (current) drug therapy; Z87.891 Personal history of nicotine dependence
CPT/HCPCS: 99211

== ENCOUNTER → 2020-07-05 | Outpatient (CLI) | payer OTHER ==
[2020-07-05 15:33] VITALS: BP 120/79; PULSE 76; RESP 16; TEMP 98.8; BMI 38.4
--- NOTE | 2020-07-05 15:56 | P.PN ---
Subjective Progress Note Date: 07/05/20 She is losing weight and eating great! Her abdomen pain is gone! Continue with food diary journal Objective - Vital Signs Vital signs: Vital Signs Temp 98.8 F 07/05/20 15:30 Pulse 76 07/05/20 15:30 Resp 16 07/05/20 15:30 BP 120/79 07/05/20 15:30 Pulse Ox Intake & Output 07/04/20 07/05/20 07/05/20 18:59 06:59 18:59 Weight 104.78 kg
== END | disposition home or self-care (01) ==
LOC: BARWHC3 15:12
PROVIDERS: ATTEND Surgery Plastic and Reconstructive Surgery
DX: E66.01 Morbid (severe) obesity due to excess calories (principal); J45.909 Unspecified asthma, uncomplicated; I10 Essential (primary) hypertension; K21.9 Gastro-esophageal reflux disease without esophagitis; E03.9 Hypothyroidism, unspecified; M19.90 Unspecified osteoarthritis, unspecified site; Z46.51 Encounter for fitting and adjustment of gastric lap band
CPT/HCPCS: 99211

== ENCOUNTER → 2020-07-26 | Outpatient (CLI) | payer OTHER ==
--- NOTE | 2020-07-26 12:15 | CONS ---
CONSULTATION DATE OF SERVICE: 07/26/2020 This 55-year-old lady has been evaluated in Sleep Center for possible obstructive sleep apnea-hypopnea syndrome and excessive daytime sleepiness. HISTORY OF PRESENT ILLNESS/SLEEP-WAKE EVALUATION: Patient's usual sleep schedule from 9 p.m. to 6:10 a.m. She does have problems with falling asleep, although no TV in bedroom. She sleeps in different positions including side back and also chair. She may take one nap a day around 2 to 3 p.m. Sometimes she may start to see dreams right after falling asleep. She wakes up from sleep up to 5 times, usually without nocturia but with episodes of panic attacks, palpitations, sleep talking, heartburn. Patient also mentioned discomfort in her legs, possibly restless legs syndrome. In the morning, patient wakes up tired has difficulties to pay attention, worries about her sleep, has problems with memory, concentration, irritability, depression, anxiety, claustrophobia. [place] Sleepiness Scale significantly increased to 12. PAST MEDICAL HISTORY: Positive for asthma, vertigo, hypertension, sinus problems, headaches, practically every day, episodes of depression, anxiety, and panic attack. PAST SURGICAL HISTORY: Partial hysterectomy, gastric bypass surgery, cholecystectomy. MEDICATIONS: Meclizine several times a day, propranolol, fluoxetine, omeprazole, levothyroxine, baby aspirin, multivitamins, alprazolam as needed, cyclobenzaprine. SOCIAL HISTORY: Positive for smoking for about 30 pack years, quit in 2006. Alcohol consumption none. FAMILY HISTORY: Positive for heart problems. REVIEW OF SYSTEMS: Multiple awakenings during sleep, sleepiness during the day, fluctuation of the mood. PHYSICAL EXAMINATION: GENERAL: lady without distress. VITAL SIGNS: BP 135/84, HR 68, RR 15, height 5 feet 5 inches, weight 231.6, temperature 97.8. Oxygen saturation at room air 97%. HEENT: PERRLA, EOMI. Oropharynx extremely low position of soft palate. Mallampati 4. NECK: Sixteen inches in circumference. LUNGS: Clear to percussion and to auscultation. Good air exchange. No wheezing or rhonchi. HEART: S1, S2 regular. No murmurs, gallops, or rubs. ABDOMEN: Slightly obese. EXTREMITIES: No clubbing or cyanosis. TOPOGRAPHIC COMPUTATOR: Awake, alert, and oriented X3. Cranial nerves 2 to 7 intact. There is no fasciculation or atrophy. noted. No focal deficits observed. IMPRESSION: 1. Snoring, multiple awakenings from sleep, extremely low position of soft palate, Mallampati 4, sleepiness. [place] Sleepiness Scale is 12. Possible obstructive sleep apnea-hypopnea syndrome. 2. History of restless leg symptoms. 3. Vertigo. 4. Hypothyroidism. 5. Asthma. 6. Hypertension. 7. History of sinus problems. 8. History of headaches often starting in the morning. 9. History of depression. 10.History of anxiety. 11.History of panic attacks. 12.Status post partial hysterectomy. 13.Status post gastric bypass. 14.Status post cholecystectomy. PLAN: 1. Polysomnography for evaluation of patient's breathing during sleep. 2. CPAP/BiPAP titration if sleep study confirms obstructive sleep apnea-hypopnea syndrome. 3. Preferable position during sleep on the side. 4. No driving if patient feels any sleepiness. 5. I will see patient for follow up visit to explain results of testing and following plan. Thank you very much for referring this patient for consultation. Sincerely, Ric Roland MD, PhD, FAASM Diplomat of [place] [employer] [place] [employer] of [facility] [place] MMODL / SAMMN: [id number] /
== END ==
LOC: SLEEP 10:47
PROVIDERS: ATTEND Internal Medicine
DX: R06.83 Snoring (principal); E03.9 Hypothyroidism, unspecified; J45.909 Unspecified asthma, uncomplicated; F41.0 Panic disorder [episodic paroxysmal anxiety]; I10 Essential (primary) hypertension; F32.9 Major depressive disorder, single episode, unspecified; Z86.69 Personal history of other diseases of the nervous system and sense organs; Z90.711 Acquired absence of uterus with remaining cervical stump; Z98.84 Bariatric surgery status; Z90.49 Acquired absence of other specified parts of digestive tract
CPT/HCPCS: 99211

== ENCOUNTER → 2020-10-04 | Outpatient (CLI) | payer OTHER ==
--- NOTE | 2020-10-05 07:54 | MR ---
EXAMINATION TYPE: MR brain wo con DATE OF EXAM: 10/04/2020 COMPARISON: 11/25/2019 HISTORY: 55-year-old female Migraine, Dizziness, right side weakness TECHNIQUE: Multiplanar, multisequence images of the brain and brainstem were acquired without IV con trast. Diffusion weighted imaging is performed. FINDINGS: No evidence for acute infarction, hemorrhage, mass, mass effect, midline shift, herniation, effacemen t of basal cisterns, or extra-axial fluid collection. There is mild cerebral cortical volume loss. No hydrocephalus. Major intracranial flow voids are intact. T2/FLAIR weighted sequences again show [id number] scattered foci of bright white matter change particularly in the subcortical but also the deep white matter regions of both cerebral hemispheres. There is a somewhat frontal lobe predominance. On the left, approximately 15 foci are present. On the right, approximately 20 foci are present. The largest in the subcortical anterior left frontal lobe measure 6 mm and left soto radiata measures 7 mm, axial image 19 and 20, respectively. Redemonstrated partially empty sella. Otherwise, midline structures demonstrate normal morphology. T he craniocervical junction is normal. Moderate mucosal thickening right frontal sinus and ethmoid air cells. Mild mucosal thickening floors of the maxillary sinuses. Globes are intact. Susceptibility artifact at the level of the left ear probably relating to external artifact or a hear ing device. IMPRESSION: 1. Mild generalized atrophy. No acute intracranial abnormality seen. 2. Mild to moderate scattered T2 bright white matter foci in the subcortical and deep white matter re gions of both cerebral hemispheres. These are unchanged from 11/25/2019. Findings may reflect sequela of chronic migraines given patient's history. Changes of chronic small vessel ischemic disease and de myelinating disease are alternative considerations. 3. Gccr-[id number] chronic ethmoid sinus disease.
== END ==
LOC: RADMRIMAIN 07:58
PROVIDERS: ATTEND Nurse Practitioner Family
DX: G43.909 Migraine, unspecified, not intractable, without status migrainosus (principal); I67.82 Cerebral ischemia; J32.2 Chronic ethmoidal sinusitis; G31.9 Degenerative disease of nervous system, unspecified
CPT/HCPCS: 70551

== ENCOUNTER → 2020-10-11 | Outpatient (CLI) | payer OTHER ==
--- NOTE | 2020-10-11 21:53 | SFUN ---
SLEEP CENTER FOLLOW UP NOTE DATE OF SERVICE: 10/11/2020 55-year-old lady has been seen in sleep center for follow-up visit to discuss results of the sleep study and following plan. I discussed results of sleep study with patient in details. Sleep study showed very minimal changes of respiration. No episodes of stopped breathing at all. Total apnea- hypopnea index was 1.2, which is totally normal with the lowest oxygen level 87% and total oxygen level was below normal for 0.5 minutes. EMG showed 30.4 periodic limb movements per hour, 3.7 microarousals per hour which does indicate some periodic limb movements. [place] Sleepiness Scale today is 9 which is borderline. MEDICATIONS: Meclizine, propranolol, fluoxetine, omeprazole, levothyroxine, aspirin, Alprazolam, cyclobenzaprine. PHYSICAL EXAMINATION: GENERAL: Patient in no distress. BP 115/75, HR 79, RR 16, weight 235.8 pounds, temperature 97.1. Oxygen saturation at room air 98%. HEENT: PERRLA, EOMI. Oropharynx extremely low position of soft palate. Mallampati 4. NECK: Supple, no JVD. Thyroid is not palpable. LUNGS: Clear to percussion and to auscultation. Good air exchange. No wheezing or rhonchi. HEART: S1, S2 regular. No murmurs, gallops, or rubs. ABDOMEN: Slightly obese. Soft and nontender. Bowel sounds are present. No organomegaly appreciated. EXTREMITIES: No clubbing or cyanosis. KNIFE SHARPENER: Awake, alert, and oriented X3. Cranial nerves 2 to 7 intact. There is no fasciculation or atrophy. noted. No focal deficits observed. IMPRESSION: 1. Snoring has been documented during the sleep study. No significant respiratory abnormalities. 2. Periodic limb movements have been documented during the sleep test. 3. History of vertigo. 4. Hypothyroidism. 5. Asthma. 6. Hypertension. 7. History of sinus problems. 8. History of headaches. 9. History of depression. 10.History of anxiety. 11.History of panic attacks. 12.Status post partial hysterectomy. 13.Status post gastric bypass surgery. 14.Status post cholecystectomy. PLAN: 1. Sleep hygiene with regular time in bed for 7-1/2 to 8 hours. 2. Preferable position during sleep on the side. 3. Losing weight. 4. Please check iron profile, including ferritin level. Low level of iron may increase risk for periodic limb movements. SSRIs including fluoxetine also may increase risk for periodic limb movements. If level of ferritin less than 50 mg/mL, replacement of iron is indicated for restless legs and periodic limb movements. 5. I discussed with the patient possibility to use medication for restless legs and periodic limb movements. At the present time our agreement is that the patient will not use any additional medication. 6. Consider followup visit in one year. Thank you very much for allowing me to participate in management of your patient. Sincerely, Ric Roland MD, PhD, FAASM Diplomat of [place] [employer] [place] [employer] [facility] [place] MMODL / SAMMN: [id number] /
== END ==
LOC: SLEEP 13:54
PROVIDERS: ATTEND Internal Medicine
DX: R06.83 Snoring (principal); G47.61 Periodic limb movement disorder; E03.9 Hypothyroidism, unspecified; J45.909 Unspecified asthma, uncomplicated; I10 Essential (primary) hypertension; F32.9 Major depressive disorder, single episode, unspecified; F41.9 Anxiety disorder, unspecified; Z87.09 Personal history of other diseases of the respiratory system; Z86.69 Personal history of other diseases of the nervous system and sense organs; Z90.49 Acquired absence of other specified parts of digestive tract; Z98.84 Bariatric surgery status; Z90.711 Acquired absence of uterus with remaining cervical stump; Z86.59 Personal history of other mental and behavioral disorders; Z88.5 Allergy status to narcotic agent; Z88.1 Allergy status to other antibiotic agents; Z91.040 Latex allergy status; Z91.012 Allergy to eggs; Z87.891 Personal history of nicotine dependence

== ENCOUNTER → 2021-01-30 | Outpatient (CLI) | payer OTHER ==
[2021-01-30 16:26] LABS: Basophils # (A) 0.05 X 10*3/uL (0.00-0.10); Basophils % (A) 0.6 %; Eosinophils # (A) 0.11 X 10*3/uL (0.04-0.35); Eosinophils % (A) 1.3 %; HCT 41.5 % (37.2-46.3); HGB 14.4 g/dL (12.0-15.0); Lymphocytes % (A) 37.6 %; MCH 30.6 pg (27.0-32.0); MCHC 34.7 g/dL (32.0-37.0); MCV 88.1 fL (80.0-97.0); Mean Platelet Volume 11.3 fL (9.5-12.2); Monocytes # (A) 0.58 X 10*3/uL (0.20-1.00); Neutrophils # (A) 4.37 X 10*3/uL (1.80-7.70); Platelet Count 243 X 10*3/uL (140-440); RBC 4.71 X 10*6/uL (4.10-5.20); RDW 12.4 % (11.5-14.5); Reticulocyte % 1.95 % (0.10-1.80); WBC 8.25 X 10*3/uL (4.50-10.00)
[2021-01-30 22:28] LABS: % Iron Saturation 26.62 (12.00-45.00); Ferritin 37.3 ng/mL (10.0-291.0); Iron 123 ug/dL (50-170); Total Iron Binding Capacity 462 ug/dL (228-460)
[2021-01-31 04:50] LABS: Follicle Stimulating Hormone 38.5 mIU/mL; Luteinizing Hormone 34.6 mIU/mL
[2021-01-31 06:50] LABS: ALT 40 U/L (8-44); AST 24 U/L (13-35); Albumin 4.7 g/dL (3.8-4.9); Albumin/Globulin Ratio 2.95 (1.60-3.17); Alkaline Phosphatase 108 U/L (41-126); BUN/Creat Ratio 38.97 Ratio (12.00-20.00); Blood Urea Nitrogen 15.2 mg/dL (9.0-27.0); Calcium 9.3 mg/dL (8.7-10.3); Carbon Dioxide 18.6 mmol/L (21.6-31.8); Chloride 103 mmol/L (96-109); Globulin 1.6 g/dL (1.6-3.3); Glucose 82 mg/dL (70-110); Non-African American GFR(CKD) 119.1 (60.0-200.0); Potassium 4.2 mmol/L (3.5-5.5); Sodium 144 mmol/L (135-145); Total Protein 6.3 g/dL (6.2-8.2)
[2021-01-31 11:52] LABS: C Reactive Protein <0.30 mg/dL (0.00-0.80)
== END | disposition home or self-care (01) ==
LOC: LABWHC1 09:23
PROVIDERS: ATTEND Psychiatry & Neurology Pain Medicine
DX: R53.82 Chronic fatigue, unspecified (principal); R53.81 Other malaise
CPT/HCPCS: 36415; 80053; 82306; 82533; 82607; 82626; 82668; 82728; 83001; 83002; 83003; 83036; 83540; 83550; 84207; 84305; 84439; 84443; 84466; 84481; 85025; 85045; 86140

== ENCOUNTER → 2021-02-22 | Outpatient (CLI) | payer OTHER ==
[2021-02-22 11:21] LABS: HCT 40.6 % (37.2-46.3); HGB 13.6 g/dL (12.0-15.0); MCH 28.9 pg (27.0-32.0); MCHC 33.5 g/dL (32.0-37.0); MCV 86.2 fL (80.0-97.0); Mean Platelet Volume 11.3 fL (9.5-12.2); Platelet Count 221 X 10*3/uL (140-440); RBC 4.71 X 10*6/uL (4.10-5.20); RDW 12.3 % (11.5-14.5); WBC 4.98 X 10*3/uL (4.50-10.00)
[2021-02-22 12:31] LABS: ALT 36 U/L (8-44); AST 30 U/L (13-35); African American GFR (CKD) 120.8 (60.0-200.0); Albumin 4.5 g/dL (3.8-4.9); Albumin/Globulin Ratio 3.07 (1.60-3.17); Alkaline Phosphatase 104 U/L (41-126); BUN/Creat Ratio 17.04 Ratio (12.00-20.00); Calcium 9.1 mg/dL (8.7-10.3); Carbon Dioxide 15.1 mmol/L (21.6-31.8); Chloride 108 mmol/L (96-109); Globulin 1.5 g/dL (1.6-3.3); Glucose 102 mg/dL (70-110); Magnesium 2.2 mg/dL (1.5-2.4); Non-African American GFR(CKD) 104.3 (60.0-200.0); Phosphorus 3.7 mg/dL (2.4-5.1); Potassium 3.9 mmol/L (3.5-5.5); Sodium 142 mmol/L (135-145)
[2021-02-22 13:44] LABS: Folate, Serum >20.00 ng/mL (4.40-31.00)
[2021-02-23 13:00] LABS: Zinc, Serum 92 ug/dL (60-130)
== END | disposition home or self-care (01) ==
LOC: LABWHC1 07:13
PROVIDERS: ATTEND Internal Medicine
DX: K91.2 Postsurgical malabsorption, not elsewhere classified (principal); R53.83 Other fatigue
CPT/HCPCS: 36415; 80053; 82525; 82607; 82746; 83735; 84100; 84402; 84403; 84443; 84630; 85027

== ENCOUNTER → 2021-02-28 | Outpatient (CLI) | payer OTHER ==
[~2021-02-28] MED LIST changes: -ACETAMINOPHEN TAB 325 MG TAB PO ONE; -ACETAMINOPHEN TAB 500 MG TAB ONE; -ACETAMINOPHEN TAB 500 MG TAB PO STA; -BUPIVACAINE-EPI 0.5%-1:200,000 10 ML VIAL SQ ONE; +COSYNTROPIN 0.25 MG VIAL IVP NR; -DEXAMETHASONE SOD PHOSPHATE 4 MG/ML 1 ML VIAL IV ONE; -GABAPENTIN 300 MG CAP PO STA; -GLYCOPYRROLATE 0.2 MG/ML 2 ML VIAL ONE; -HEPARIN SODIUM,PORCINE 5,000 UNIT/ML 1 ML VIAL SQ SCH; -HYDROmorphone 0.5 MG/0.5 ML SYRINGE IVP PRN; -KETOROLAC 15 MG/ML 1 ML VIAL ONE; -LACTATED RINGERS 1,000 ML IV ONE; -LACTATED RINGERS 1,000 ML IV SCH; -LIDOCAINE 1% (10MG/ML) FOR IV START INTRADERMA PRN; -LIDOCAINE 1% INJ 10MG/ML (20 ML MDV) ONE; -MIDAZOLAM 2 MG/2 ML VIAL IV ONE; -MIDAZOLAM 2 MG/2 ML VIAL ONE; -NEOSTIGMINE 1 MG/ML 10 ML VIAL ONE; -PHENYLEPHRINE-0.9% NACL SYG 1,000 MCG/10 ML SYRINGE ONE; -PROPOFOL 10 MG/ML 20 ML VIAL IV ONE; -ROCURONIUM 10 MG/ML (5 ML VIAL) IV ONE; -ROPIVACAINE 5 MG/ML 30 ML VIAL ONE; -SCOPOLAMINE 1.5MG/72HR PATCH TRANSDERM ONE; -SCOPOLAMINE 1.5MG/72HR PATCH TRANSDERM STA; +SODIUM CHLORIDE 0.9% 500 ML 500 ML in EMPTY BAG 1 BAG IV PRN; -SUCCINYLCHOLINE CHLORIDE 100 MG/5 ML SYR IV ONE; -ePHEDrine SULFATE/0.9% NACL/PF 50 MG/5 ML SYRINGE IV ONE; -fentaNYL (PF) 50 MCG/ML 2 ML AMP ONE
[2021-02-28 08:09] VITALS: BP 125/77; PULSE 71; RESP 16; TEMP 98.7
== END ==
LOC: PROCWHC3 07:54
PROVIDERS: ATTEND Internal Medicine
DX: R53.83 Other fatigue (principal); K91.2 Postsurgical malabsorption, not elsewhere classified; Z88.5 Allergy status to narcotic agent; Z88.1 Allergy status to other antibiotic agents; Z91.040 Latex allergy status; Z91.012 Allergy to eggs; Z91.048 Other nonmedicinal substance allergy status; Z87.891 Personal history of nicotine dependence
CPT/HCPCS: 82533; 82024; 96374; 36415; J0834

== ENCOUNTER → 2021-03-01 | Outpatient (CLI) | payer OTHER ==
[2021-03-01 20:34] LABS: Rheumatoid Factor, Qnt <10 IU/mL (0-15)
[2021-03-01 22:42] LABS: Cyclic Citrull Pep IgG Unit <0.5 U/mL; Cyclic Citrullinated Pep IgG NEGATIVE (NEGATIVE)
== END | disposition home or self-care (01) ==
LOC: LABWHC1 11:13
PROVIDERS: ATTEND Internal Medicine
DX: R53.83 Other fatigue (principal)
CPT/HCPCS: 36415; 83520; 85652; 86038; 86140; 86200; 86431

== ENCOUNTER → 2021-06-02 | Outpatient (CLI) | payer OTHER ==
[2021-06-02 16:16] LABS: Basophils # (A) 0.06 X 10*3/uL (0.00-0.10); Basophils % (A) 0.9 %; Eosinophils # (A) 0.21 X 10*3/uL (0.04-0.35); Eosinophils % (A) 3.3 %; HCT 40.4 % (37.2-46.3); HGB 13.4 g/dL (12.0-15.0); Immature Grans, Automated 0.2 %; Lymphocytes # (A) 2.02 X 10*3/uL (0.90-5.00); Lymphocytes % (A) 31.8 %; MCH 29.3 pg (27.0-32.0); MCHC 33.2 g/dL (32.0-37.0); MCV 88.4 fL (80.0-97.0); Monocytes # (A) 0.49 X 10*3/uL (0.20-1.00); Monocytes % (A) 7.7 %; NRBC Per 100 WBC 0 /100 WBCS (0.0-0.0); Neutrophils # (A) 3.57 X 10*3/uL (1.80-7.70); Neutrophils % (A) 56.1 %; Platelet Count 237 X 10*3/uL (140-440); RBC 4.57 X 10*6/uL (4.10-5.20); RDW 12.8 % (11.5-14.5); WBC 6.36 X 10*3/uL (4.50-10.00)
[2021-06-02 16:45] LABS: ALT 43 U/L (8-44); AST 29 U/L (13-35); African American GFR (CKD) 124.3 (60.0-200.0); Albumin 4.4 g/dL (3.8-4.9); Albumin/Globulin Ratio 2.64 (1.60-3.17); Alkaline Phosphatase 102 U/L (41-126); BUN/Creat Ratio 22.39 Ratio (12.00-20.00); Calcium 8.8 mg/dL (8.7-10.3); Carbon Dioxide 22.6 mmol/L (20.0-27.5); Chloride 108 mmol/L (96-109); Chol/HDL Ratio 3.25 Ratio; Globulin 1.7 g/dL (1.6-3.3); Glucose 88 mg/dL (70-110); LDL Cholesterol,Calculated 90.5 mg/dL (0.0-131.0); Non-African American GFR(CKD) 107.2 (60.0-200.0); Potassium 3.9 mmol/L (3.5-5.5); Prealbumin 24.9 mg/dL (18.0-42.0); Sodium 145 mmol/L (135-145); Total Protein 6.1 g/dL (6.2-8.2)
[2021-06-05 13:26] LABS: Albumin 4.07 g/dL (3.80-4.90); Gamma Globulin 0.35 g/dL (0.70-1.50)
[2021-06-06 11:19] LABS: Vitamin A 60 ug/dL (38-106)
== END | disposition home or self-care (01) ==
LOC: LABWHC1 09:48
PROVIDERS: ATTEND Family Medicine
DX: E27.40 Unspecified adrenocortical insufficiency (principal); R73.9 Hyperglycemia, unspecified; R53.82 Chronic fatigue, unspecified; Z98.84 Bariatric surgery status
CPT/HCPCS: 36415; 80053; 80061; 82306; 82533; 82607; 83036; 83880; 84134; 84165; 84255; 84439; 84443; 84590; 85025; 86334

== ENCOUNTER → 2021-10-08 | Outpatient (CLI) | payer OTHER ==
--- NOTE | 2021-10-08 23:31 | XR ---
EXAMINATION TYPE: XR knee limited LT DATE OF EXAM: 10/08/2021 COMPARISON: NONE INDICATION: Pain TECHNIQUE: 2 views of the left knee joint FINDINGS: Mild degenerative changes of the left knee joint. No definite acute fracture line identified. Small-t o-moderate knee joint effusion. IMPRESSION: Mild degenerative changes as described above.
== END | disposition home or self-care (01) ==
LOC: RADXRMAIN 11:29
PROVIDERS: ATTEND Nurse Practitioner Gerontology
DX: M17.12 Unilateral primary osteoarthritis, left knee (principal)

== ENCOUNTER → 2021-12-25 | Outpatient (CLI) | payer OTHER ==
--- NOTE | 2021-12-25 10:22 | US ---
EXAMINATION TYPE: US venous doppler duplex LE DATE OF EXAM: 12/25/2021 10:06 AM COMPARISON: NONE CLINICAL HISTORY: R22.42 swelling. No hx of DVT. Patient takes aspirin. Swelling. Patient fell on Jul and hurt her left leg. SIDE PERFORMED: Left TECHNIQUE: The lower extremity deep venous system is examined utilizing real time linear array sonog ori with graded compression, doppler sonography and color-flow sonography. VESSELS IMAGED: Common Femoral Vein Deep Femoral Vein Greater Saphenous Vein * Femoral Vein Popliteal Vein Small Saphenous Vein * Proximal Calf Veins (* superficial vessels) Left Leg: No evidence of DVT in veins imaged at this time. IMPRESSION: 1. No diagnostic evidence of DVT as visualized.
== END | disposition home or self-care (01) ==
LOC: RADUSWWP 09:38
PROVIDERS: ATTEND Internal Medicine Geriatric Medicine
DX: R22.42 Localized swelling, mass and lump, left lower limb (principal)

== ENCOUNTER → 2022-01-30 | Outpatient (CLI) | payer OTHER ==
[2022-01-30 15:28] LABS: Protein, Total 6.2 g/dL (6.2-8.2)
[2022-01-30 15:38] LABS: ALT 32 U/L (8-44); AST 26 U/L (13-35); African American GFR (CKD) 118.9 (60.0-200.0); Albumin 4.4 g/dL (3.8-4.9); Albumin/Globulin Ratio 2.59 (1.60-3.17); Alkaline Phosphatase 104 U/L (41-126); BUN/Creat Ratio 16.83 Ratio (12.00-20.00); Blood Urea Nitrogen 10.1 mg/dL (9.0-27.0); C Reactive Protein <0.30 mg/dL (0.00-0.80); Carbon Dioxide 24.5 mmol/L (20.0-27.5); Chloride 106 mmol/L (96-109); Chol/HDL Ratio 4.02 Ratio; Creatine Kinase 75 U/L (26-186); Globulin 1.7 g/dL (1.6-3.3); Glucose 102 mg/dL (70-110); LDL Cholesterol,Calculated 120.6 mg/dL (0.0-131.0); Non-African American GFR(CKD) 102.6 (60.0-200.0); Potassium 4.2 mmol/L (3.5-5.5); Sodium 143 mmol/L (135-145); Total Protein 6.1 g/dL (6.2-8.2); Uric Acid 4.7 mg/dL (2.9-7.7)
[2022-01-30 16:18] LABS: Immunoglobulin M 38.9 mg/dL (40.0-280.0)
[2022-01-30 16:30] LABS: Immunoglobulin A 26.5 mg/dL (60.0-350.0)
[2022-01-30 16:54] LABS: Basophils # (A) 0.04 X 10*3/uL (0.00-0.10); Basophils % (A) 0.8 %; Eosinophils # (A) 0.18 X 10*3/uL (0.04-0.35); Eosinophils % (A) 3.6 %; HGB 13.9 g/dL (12.0-15.0); Immature Grans, Automated 0.2 %; Lymphocytes # (A) 1.82 X 10*3/uL (0.90-5.00); MCHC 34.8 g/dL (32.0-37.0); MCV 86.2 fL (80.0-97.0); Mean Platelet Volume 11.6 fL (9.5-12.2); Monocytes # (A) 0.38 X 10*3/uL (0.20-1.00); Monocytes % (A) 7.5 %; NRBC Per 100 WBC 0 /100 WBCS (0.0-0.0); Neutrophils # (A) 2.63 X 10*3/uL (1.80-7.70); Neutrophils % (A) 51.9 %; Platelet Count 197 X 10*3/uL (140-440); RBC 4.64 X 10*6/uL (4.10-5.20); RDW 13.1 % (11.5-14.5); WBC 5.06 X 10*3/uL (4.50-10.00)
[2022-01-30 17:36] LABS: Erythrocyte Sedimentation Rate 3 mm/Hr (0-30)
[2022-01-30 19:03] LABS: Immunoglobulin E 1.56 IU/mL (0.00-114.00)
[2022-01-30 20:37] LABS: Cyclic Citrull Pep IgG Unit <0.5 U/mL; Cyclic Citrullinated Pep IgG NEGATIVE (NEGATIVE)
[2022-01-31 03:33] LABS: C-Peptide 4.37 ng/mL (0.81-3.85)
[2022-01-31 10:23] LABS: HLA B27 NEGATIVE
[2022-01-31 12:31] LABS: Free Kappa Lt Chain Qnt, Serum 0.83 mg/dL (0.33-1.94); Free Lambda Lt Chain Qnt, Seru 0.67 mg/dL (0.57-2.63)
[2022-01-31 14:30] LABS: Albumin 4.15 g/dL (3.80-4.90); Gamma Globulin 0.36 g/dL (0.70-1.50)
[2022-02-01 10:08] LABS: Lyme IgG/IgM 0.05 Index
== END | disposition home or self-care (01) ==
LOC: LABWHC1 09:21
PROVIDERS: ATTEND Family Medicine
DX: M13.0 Polyarthritis, unspecified (principal); E27.40 Unspecified adrenocortical insufficiency; M77.9 Enthesopathy, unspecified; E16.1 Other hypoglycemia; R53.82 Chronic fatigue, unspecified; D84.89 Other immunodeficiencies
CPT/HCPCS: 36415; 80053; 80061; 82024; 82306; 82525; 82533; 82550; 82607; 82784; 82785; 83036; 83883; 84165; 84439; 84443; 84550; 84681; 85025; 85652; 86038; 86140; 86200; 86334; 86618; 86812

== ENCOUNTER → 2022-08-23 | Outpatient (CLI) | payer OTHER ==
--- NOTE | 2022-08-26 09:19 | MM ---
Reason for Exam: Screening (asymptomatic). Last mammogram was performed 4 year(s) and 1 month(s) ago. Patient History: Menarche at age 15. First Full-Term at age 30. Postmenopausal. Benign Excisional Biopsy. Maternal aunt had breast cancer. Maternal aunt had breast cancer. Maternal aunt had breast cancer. Risk Values: Esther 5 year model risk: 1.6%. NCI Lifetime model risk: 10.7%. Prior Study Comparison: 08/14/2015 Bilateral Screening Mammogram, [facility]. 11/11/2016 Bilateral Screening Mammogram, [facility]. 07/20/2018 Bilateral Screening Mammogram, [facility]. Tissue Density: There are scattered fibroglandular densities. Findings: Analyzed By CAD. There is no suspicious group of microcalcifications within either breast. No suspicious mass within the left breast. 1 cm ovoid equal density mass within the inner lower right breast at posterior depth. Stable chronic nodularity within the right breast. Overall Assessment: Incomplete: need additional imaging evaluation, BI-RAD 0 Management: Diagnostic Breast Ultrasound of the right breast. A clinical breast exam by your physician is recommended on an annual basis and results should be correlated with mammographic findings. [facility] will attempt to contact patient to return for supplemental views and ultrasound if indicated. Electronically signed and approved by: Emile Mckeon D.O.
== END | disposition home or self-care (01) ==
LOC: RADMAMWWP 14:40
PROVIDERS: ATTEND Family Medicine
DX: Z12.31 Encounter for screening mammogram for malignant neoplasm of breast (principal); Z78.0 Asymptomatic menopausal state; Z80.3 Family history of malignant neoplasm of breast
CPT/HCPCS: 77067

== ENCOUNTER → 2022-08-27 | Outpatient (CLI) | payer OTHER ==
--- NOTE | 2022-08-27 13:41 | BD ---
EXAMINATION TYPE: Axial Bone Density DATE OF EXAM: 08/27/2022 CLINICAL HISTORY: 57 years old Female. ICD-10 CODE: N95.1 MENOPAUSE M89.9 DISORDER OF BONE, UNSPECIF IED Height: 65 Weight: 229.5 FRAX RISK QUESTIONS: Alcohol (3 or more units per day): no Family History (Parent hip fracture): no Glucocorticoids (More than 3mos): no (Ex: prednisone, prednisolone, methylprednisolone, dexamethasone, and hydrocortisone). History of Fracture in Adulthood: yes Secondary Osteoporosis: 1. Type 1 Diabetes: no 2. Hyperthyroidism: no 3. Menopause before 45: no 4. Malnutrition: no 5. Chronic liver disease: no Rheumatoid Arthritis: no Current Tobacco Use: no RISK FACTORS HISTORY OF: History of Wrist Fracture: right When: age 18 Surgery to Spine/Hip(right/left)/Wrist (right/left): no Family History of Osteoporosis: no Diet low in dairy products/other sources of calcium: no Postmenopausal woman: yes Lost more than 2 inches in height since high school: no MEDICATIONS: Thyroid Medications: levothyroxine How Lon years Additional History: EXAM MEASUREMENTS: Bone mineral densitometry was performed using the [employer] System. Bone mineral density as measured about the Lumbar spine is: ----- L1-L4(G/cm2): 1.260 T Score Values are as follows: ----- L1: -0.5 ----- L2: 0.4 ----- L3: 1.2 ----- L4: 1.1 ----- L1-L4: 0.7 Z Score Values are as follows: ----- L1: -0.8 ----- L2: 0.0 ----- L3: 0.9 ----- L4: 0.8 ----- L1-L4: 0.3 Bone mineral density : baseline Bone mineral density about the R hip (g/cm2): 1.041 Bone mineral density about the L hip (g/cm2): 1.066 T Score values are as follows: -----R Neck: -0.2 -----L Neck: -0.5 -----R Total: 0.3 -----L Total: 0.3 Z Score values are as follows: -----R Neck: 0.1 -----L Neck: -0.3 -----R Total: 0.1 -----L Total: 0.3 Bone mineral density : baseline FRAX%s: The graph provided illustrates a 8.9% chance for a major osteoporotic fx and a 0.3% chance fo r the hips probability for fx in 10 years time. IMPRESSION: Normal (Values between +1 and -1 indicate normal bone mass). Consider repeating this study in 5 year s or sooner if there is some new clinical indication. NOTE: T-SCORE=SD OF THE YOUNG ADULT MEAN.
== END | disposition home or self-care (01) ==
LOC: RADBDWWP 12:31
PROVIDERS: ATTEND Family Medicine
DX: N95.1 Menopausal and female climacteric states (principal)
CPT/HCPCS: 77080

== ENCOUNTER → 2022-08-29 | Outpatient (CLI) | payer OTHER ==
--- NOTE | 2022-08-29 11:19 | USB ---
Reason for Exam: Additional evaluation requested from abnormal screening. Patient History: Menarche at age 15. First Full-Term at age 30. Postmenopausal. Benign Excisional Biopsy. Maternal aunt had breast cancer. Maternal aunt had breast cancer. Maternal aunt had breast cancer. Risk Values: Esther 5 year model risk: 1.6%. NCI Lifetime model risk: 10.7%. Technique: Method: Targeted. Prior Study Comparison: 11/11/2016 Bilateral Screening Mammogram, [facility]. 07/20/2018 Bilateral Screening Mammogram, [facility]. 08/23/2022 Bilateral MG screening mammo w CAD, [facility]. Findings: The lower inner quadrant of the right breast, the axilla of the right breast and the retroareolar of the right breast were scanned. Targeted ultrasound right breast shows a 9 x 8 x 4 mm thin-walled oval lesion with some lobulated contour with increased through transmission and no vascularity thought to reflect simple cyst at 5:00 position 7 cm distance from nipple believed to be corresponding to mammogram abnormality. Overall Assessment: Benign, BI-RAD 2 Management: Screening Mammogram of both breasts in 1 year. Return to routine follow-up. Results were given to the patient verbally at the time of exam. Electronically signed and approved by: Brandin Chauhan M.D.
== END | disposition home or self-care (01) ==
LOC: RADUSWWP 10:18
PROVIDERS: ATTEND Family Medicine
DX: R92.8 Other abnormal and inconclusive findings on diagnostic imaging of breast (principal); Z78.0 Asymptomatic menopausal state; Z80.3 Family history of malignant neoplasm of breast

== ENCOUNTER → 2022-12-19 | Outpatient (CLI) | payer OTHER ==
--- NOTE | 2022-12-19 13:10 | MR ---
PRE AND POSTCONTRAST ENHANCED MRI OF THE BRAIN: CLINICAL HISTORY: 10.5ml Gadavist Comparison: 11/25/2019 CONTRAST: 10.5ml Gadavist Multiplanar and multispin-echo imaging of the brain was performed both before and after the administr ation of contrast. The ventricles, basal cisterns and sulci overlying the cerebral convexities are within normal limits. There is no evidence for midline shift or mass effect. Acute intracranial hemorrhage or extra-axial collection is not evident. Again noted are approximately 12 white matter lesions right cerebral hemisphere with the largest with in the right-sided soto radiata measuring 3.6 mm. Within the left cerebral hemisphere there are catarina roximately 10-12 lesions with the largest measuring 8.3 mm within the left centrum semioval bilateral ly. No new lesions are seen. Correlate for demyelination. Additional possibilities include sequela of chronic migraine headaches, vasculopathy as well as Lyme's disease among other possibilities. Following contrast administration, there is no evidence for pathologic enhancement or enhancing mass. The paranasal sinuses and mastoid air cells are well-aerated. IMPRESSION: 1. Stable nonspecific white matter changes. 2. No evidence for pathologic enhancement or acute edema.
== END | disposition home or self-care (01) ==
LOC: RADMRIMAIN 11:39
PROVIDERS: ATTEND Psychiatry & Neurology Neurology
DX: G43.711 Chronic migraine without aura, intractable, with status migrainosus (principal); R90.82 White matter disease, unspecified
CPT/HCPCS: 70553; A9585

== ENCOUNTER → 2023-01-08 | Outpatient (CLI) | payer OTHER ==
--- NOTE | 2023-01-09 12:42 | CT ---
CT CHEST FOR PULMONARY EMBOLISM. EXAMINATION TYPE: CT angio chest DATE OF EXAM: 01/08/2023 INDICATION: Post COVID, chest pain & SOB x [address] DLP: 509.8 mGycm, Automated exposure control for dose reduction was used. CONTRAST: Patient injected with 100 cc mL of Isovue 370. COMPARISON: TECHNIQUE: CT of the chest is performed on a spiral scan at 2 mm thick sections. Study is performed with intravenous contrast timed for evaluation for pulmonary embolism. This will limit additional po rtions of the evaluation. 3-D MIP images reconstructed by the technologist are reviewed on the compu ter in the coronal and sagittal planes. FINDINGS: No persistent filling defects are evident to suggest an acute pulmonary embolism. No mediastinal or hilar adenopathy enlarged by CT criteria is evident. The ascending aorta diameter at the level of the main pulmonary artery is 3.6 cm. The main pulmonary artery diameter at the bifur cation is 2.2 cm. Lung windows are clear. No suspicious infiltrates are evident. No pleural fluid collections. Limited CT section through the upper abdomen are unremarkable. IMPRESSION: 1. No acute pulmonary embolism radiographically apparent. 2. No acute pulmonary process.
== END | disposition home or self-care (01) ==
LOC: RADCTMAIN 14:11
PROVIDERS: ATTEND Family Medicine
DX: R07.9 Chest pain, unspecified (principal); R06.02 Shortness of breath; Z86.16 Personal history of COVID-19
CPT/HCPCS: 71275; Q9967

== ENCOUNTER → 2023-01-17 | Outpatient (CLI) | payer OTHER ==
--- NOTE | 2023-01-17 13:28 | US ---
EXAMINATION TYPE: US venous doppler duplex LE BI DATE OF EXAM: 01/17/2023 1:10 PM COMPARISON: [facility] 12/25/2021 CLINICAL INDICATION: Female, 57 years old with history of M79.662 PAIN IN LEFT LOWER LEG; No hx of DV T. Patient takes baby aspirin. Recent covid. SIDE PERFORMED: Bilateral TECHNIQUE: The lower extremity deep venous system is examined utilizing real time linear array sonog ori with graded compression, doppler sonography and color-flow sonography. VESSELS IMAGED: Common Femoral Vein Deep Femoral Vein Greater Saphenous Vein * Femoral Vein Popliteal Vein Small Saphenous Vein * Proximal Calf Veins (* superficial vessels) Right Leg: No evidence of DVT. Left Leg: No evidence of DVT. IMPRESSION: 1. No diagnostic evidence of DVT as visualized.
== END | disposition home or self-care (01) ==
LOC: RADUSWWP 12:43
PROVIDERS: ATTEND Family Medicine
DX: M79.662 Pain in left lower leg (principal); R07.9 Chest pain, unspecified; Z79.82 Long term (current) use of aspirin
CPT/HCPCS: 93970

== ENCOUNTER → 2023-01-30 | Outpatient (CLI) | payer OTHER ==
--- NOTE | 2023-01-30 12:32 | US ---
EXAMINATION TYPE: US arterial LE single level DATE OF EXAM: 01/30/2023 10:26 AM CLINICAL INDICATION: Female, 58 years old with history of M79.662 CLAUDICTION LEFT LE; Intermittent l eft lower leg pain, swelling and cold to the touch x 1 year History of: Smoker: Previous Hypertension: No Diabetic: No Hyperlipidemia: No TIA/CVA: No Previous Vascular Surgery: No WI: No Claudication: Left Doppler Waveforms: Right: Multiphasic Left: Multiphasic Right Brachial Pressure: 137 Left Brachial Pressure: 137 Ankle-Brachial Indices: Right: 1.26 Left: 1.23 Toe Brachial Indices: Right: 0.87 Left: 0.87 IMPRESSION: Normal bilateral BRENDA indices.
--- NOTE | 2023-01-30 17:45 | CA ---
Transthoracic Echo Report Name: Jolie Reilly Age: 58 Gender: F : 1965 Exam Date: 01/30/2023 08:39 Exam Location: [facility] Ht (in): 65 Wt (lb): 230 Ordering Physician: Alona Maddox MD Attending/Referring Phys: Ict Project Manager Nadia Fontanez RDCS Procedure CPT: Indications: R07.9 chest pain, M79.662 pain Cardiac Hx: Technical Quality: Fair Contrast 1: Total Dose (mL): Contrast 2: Total Dose (mL): MEASUREMENTS (Male / Female) Normal Values 2D ECHO LV Diastolic Diameter PLAX 4.4 cm 4.2 - 5.9 / 3.9 - 5.3 cm LV Systolic Diameter PLAX 3.1 cm IVS Diastolic Thickness 1.2 cm 0.6 - 1.0 / 0.6 - 0.9 cm LVPW Diastolic Thickness 1.0 cm 0.6 - 1.0 / 0.6 - 0.9 cm LV Relative Wall Thickness 0.5 RV Internal Dim ED PLAX 3.6 cm LA Volume 34.0 cm??? 18 - 58 / 22 - 52 cm??? LA Volume Index 15.2 cm???/m??? 16 - 28 cm???/m??? M-MODE Aortic Root Diameter MM 3.0 cm LA Systolic Diameter MM 3.0 cm LA Ao Ratio MM 1.0 AV Cusp Separation MM 2.0 cm DOPPLER AV Peak Velocity 101.6 cm/s AV Peak Gradient 4.1 mmHg AV Mean Velocity 77.7 cm/s AV Mean Gradient 2.6 mmHg AV Velocity Time Integral 21.9 cm LVOT Peak Velocity 91.0 cm/s LVOT Peak Gradient 3.3 mmHg LVOT Velocity Time Integral 19.2 cm MV Area PHT 3.0 cm??? Mitral E Point Velocity 82.4 cm/s Mitral A Point Velocity 112.0 cm/s Mitral E to A Ratio 0.7 MV Deceleration Time 255.7 ms MV E' Velocity 4.5 cm/s Mitral E to MV E' Ratio 18.1 TR Peak Velocity 166.4 cm/s TR Peak Gradient 11.1 mmHg Right Ventricular Systolic Press 16.1 mmHg FINDINGS Left Ventricle Mildly increased left ventricular wall thickness. Left ventricular cavity size normal. Normal left ventricular systolic function with no obvious regional wall motion abnormalities. Left ventricular ejection fraction is estimated at 55-60 %. Right Ventricle Mild right ventricular dilatation. Right ventricular systolic pressure within normal limits. Right Atrium Normal right atrial size. Left Atrium Normal left atrial size. Mitral Valve Structurally normal mitral valve. No mitral stenosis, regurgitation or prolapse. Mild mitral annular calcification. Aortic Valve Trileaflet aortic valve. No aortic valve stenosis or regurgitation. Tricuspid Valve Structurally normal tricuspid valve. Mild tricuspid regurgitation. Pulmonic Valve Structurally normal pulmonic valve. Trace pulmonic regurgitation. Pericardium No pericardial effusion. Aorta Normal size aortic root and proximal ascending aorta. CONCLUSIONS Normal LV function Previewed by: Dr. Vini Cevallos MD (Electronically Signed) Final Date: 30 January 2023 17:44
== END | disposition home or self-care (01) ==
LOC: RADECHMAIN 08:26
PROVIDERS: ATTEND Family Medicine
DX: R07.9 Chest pain, unspecified (principal); M79.662 Pain in left lower leg; M79.89 Other specified soft tissue disorders
CPT/HCPCS: 93306; 93922

== ENCOUNTER 2023-03-13 14:16 | Emergency (ER) | payer OTHER ==
[2023-03-13] MEDS ORDERED: levETIRAcetam IV 500 MG/5 ML VIAL IVP STA (14:24)
--- NOTE | 2023-03-13 14:27 | ED ---
General Adult HPI - General Stated complaint: Seizure Time Seen by Provider: 03/13/23 14:18 Source: patient, EMS, RN notes reviewed Mode of arrival: EMS Limitations: no limitations - History of Present Illness Initial comments: Patient is a pleasant 58-year-old female presenting to the emergency department following reported seizure. Patient was at [place]. Patient had generalized witnessed seizure lasting 30 seconds. Patient states she has had a history of petit mal seizures in the past, approximate 5 or 6 times. They have had difficulty identifying the seizure activity on EEGs. Patient has not previously been on medication for seizures. No head injury or new injury. No neck or back pain. EMS reports the patient was postictal for 7-10 minutes. Patient is on disability for chronic headaches. - Related Data Home Medications Medication Instructions Recorded Confirmed ALPRAZolam [Xanax] 1 mg PO TID PRN 12/09/13 02/28/21 Meclizine [Antivert] 25 mg PO TID PRN 02/01/15 02/28/21 Levothyroxine Sodium [Levoxyl] 75 mcg PO DAILY 05/19/15 02/28/21 Albuterol Inhaler [Ventolin Hfa 1 - 2 puff INHALATION RT-Q6H PRN 12/01/1502/28 Inhaler] FLUoxetine HCL [PROzac] 80 mg PO DAILY 03/20/16 02/28/21 Cholecalciferol [Vitamin D3 (25 1,000 unit PO DAILY 06/13/16 02/28/21 Mcg = 1000 Iu)] Multivitamins, Thera [Multivitamin 1 tab PO DAILY 06/13/16 02/28/21 (formulary)] Vitamin A [Vitamin A (8,000 Units 1 tab PO DAILY 06/13/16 02/28/21 = 2,400 MCG)] Omeprazole 20 mg PO DAILY 03/03/17 02/28/21 Cyclobenzaprine [Flexeril] 10 mg PO BID PRN 03/25/18 02/28/21 Fluconazole [Diflucan] 150 mg PO DAILY PRN 03/25/18 02/28/21 Propranolol HCl 80 mg PO DAILY 06/13/20 02/28/21 Aspirin 81 mg PO DAILY 07/05/20 02/28/21 Previous Rx's Medication Instructions Recorded Acetaminophen Tab [Tylenol Tab] 1,000 mg PO Q6HR PRN #30 tablet 06/19/20 levETIRAcetam [Keppra] 500 mg PO Q12HR #60 tab 03/13/23 Allergies Allergy/AdvReac Type Severity Reaction Status Date / Time marijuana (cannabis) Allergy Unknown Swelling, Verified 03/13/23 14:26 [marijuana] Hives, Dyspnea ciprofloxacin HCl Allergy Anaphylaxis Verified 03/13/23 14:26 [From Cipro] Latex, Natural Rubber Allergy Rash/Hives Verified 03/13/23 14:26 ofloxacin [From Floxin] Allergy Anaphylaxis Verified 03/13/23 14:26 potassium clavulanate Allergy Unknown Verified 03/13/23 14:26 [From Augmentin] silicone Allergy Dyspnea,ITC Verified 03/13/23 14:26 REGGIE EMGALITY Allergy Unknown Hives, Uncoded 03/13/23 14:26 Swelling, Dyspnea, wheezing raw egg Allergy Dyspnea, Uncoded 03/13/23 14:26 THROAT SWELLING SILICONE Allergy Rash/Hives Uncoded 03/13/23 14:26 Review of Systems ROS Statement: Those systems with pertinent positive or pertinent negative responses have been documented in the HPI. ROS Other: All systems not noted in ROS Statement are negative. Constitutional: Denies: fever Eyes: Denies: eye pain ENT: Denies: ear pain Respiratory: Denies: cough Cardiovascular: Denies: chest pain Endocrine: Denies: fatigue Gastrointestinal: Denies: abdominal pain Genitourinary: Denies: dysuria Musculoskeletal: Denies: back pain Neurological: Reports: as per HPI Past Medical History Past Medical History: Asthma, GERD/Reflux, Hypertension, Neurologic Disorder, Osteoarthritis (OA), Seizure Disorder, Thyroid Disorder Additional Past Medical History / Comment(s): HX OF SEIZURE X1 (FEB 2018)., FREQUENT DIARRHEA, MIGRAINES., STATES PREVIOUS MEDS FOR HTN- RESOLVED WITH WT LOSS., VERTIGO, BACK PAIN., STATES SYMPTOMS LIKE M.S. (WHITE MATTER LESIONS AND SYMPTOMS SUCH OCCASIONAL JERKING, DROOLING, NEUROPATHY.)., ANEMIA, ADULT ACNE., HYPOGLYCEMIA. History of Any Multi-Drug Resistant Organisms: None Reported Past Surgical History: Bariatric Surgery, Breast Surgery, Cholecystectomy, Hysterectomy, Tonsillectomy, Uterine Ablation Additional Past Surgical History / Comment(s): r breast calcification removed, fatty tumor removed from scalp, 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 Past Anesthesia/Blood Transfusion Reactions: Family History of Problems w/ Anesthesia, Motion Sickness Additional Past Anesthesia/Blood Transfusion Reaction / Comment(s): VERTIGO. DAUGHTER HAS PONV Smoking Status: Former smoker - Past Family History Father Family Medical History: Cancer Additional Family Medical History / Comment(s): lung cancer with brain mets Occupational Seizure History - Commerical Driving History Currently uses [employer] for employment (including self-employed).: No General Exam Limitations: no limitations General appearance: alert, in no apparent distress Head exam: Present: normocephalic Eye exam: Present: normal appearance, PERRL, EOMI ENT exam: Present: normal exam Respiratory exam: Present: normal lung sounds bilaterally Cardiovascular Exam: Present: regular rate, normal rhythm GI/Abdominal exam: Present: soft. Absent: tenderness Extremities exam: Present: normal inspection, full ROM. Absent: tenderness Neurological exam: Present: alert, CN II-XII intact. Absent: motor sensory deficit Expanded Neurological exam: Present: protecting the airway Speech: Present: fluid speech Cranial nerves: EOM's Intact: Normal Sensory exam: Upper Extremity Light Touch: Normal, Lower Extremity Light Touch: Normal Motor strength exam: RUE: 5, LUE: 5, RLE: 5, LLE: 5 Eye Response: (4) open spontaneously Motor Response: (6) obeys commands Verbal Response: (5) oriented Psychiatric exam: Present: normal affect, normal mood Skin exam: Present: normal color Course Vital Signs 03/13/23 03/13/23 14:21 14:56 Temperature 98.6 F Pulse Rate 116 H 100 Respiratory 18 18 Rate Blood Pressure 150/95 O2 Sat by Pulse 99 98 Oximetry EKG Findings - EKG Results: EKG: interpreted by ERMD (Left axis. Poor R-wave progression.), sinus rhythm, normal ST/T EKG shows: tachycardia Medical Decision Making - Medical Decision Making Was pt. sent in by a medical professional or institution (, PA, RETAIL BRAND AMBASSADOR, urgent care, hospital, or retirement...) When possible be specific @ -No Did you speak to anyone other than the patient for history (EMS, parent, family, police, friend...)? What history was obtained from this source @ -EMS helped right history is patient is slightly postictal on arrival. Did you review nursing and triage notes (agree or disagree)? Why? @ -I reviewed and agree with nursing and triage notes Were old charts reviewed (outside hosp., previous admission, EMS record, old E KG, old radiological studies, urgent care reports/EKG's, retirement records)? Report findings @ -Previous MRI reviewed. Differential Diagnosis (chest pain, altered mental status, abdominal pain women, abdominal pain men, vaginal bleeding, weakness, fever, dyspnea, syncope, headache, dizziness, GI bleed, back pain, seizure, CVA, palpatations, mental health, musculoskeletal)? @ -Differential Seizure: Recurrent seizure disorder, febrile seizure, alcohol withdrawal, stimulants, meningitis, encephalitis, intercranial hemorrhage, intracranial tumor, stroke, eclampsia, thyrotoxicosis, hypocalcemia, hyponatremia, hypernatremia, hypomagnes emia, psychogenic, this is not meant to be an all-inclusive list. EKG interpreted by me (3pts min.). @ -As above X-rays interpreted by me (1pt min.). @ -None done CT interpreted by me (1pt min.). @ -None done U/S interpreted by me (1pt. min.). @ -None done What testing was considered but not performed or refused? (CT, X-rays, U/S, labs)? Why? @ -Consider computed tomography scan the brain however patient does have recent MRI done. What meds were considered but not given or refused? Why? @ -None Did you discuss the management of the patient with other professionals (professionals i.e. ., PA, RET[employer] BRAND AMBASSADOR, lab, RT, psych nurse, psychotherapist social worker, sales appointment coordinator, teacher, human resource officer, outpatient case manager)? Give summary @ -No Was smoking cessation discussed for >3mins.? @ -No Was critical care preformed (if so, how long)? @ -No Were there social determinants of health that impacted care today? How? (Homelessness, low income, unemployed, alcoholism, drug addiction, transportation, low edu. Level, literacy, decrease access to med. care, correction, rehab)? @ -No Was there de-escalation of care discussed even if they declined (Discuss DNR or withdrawal of care, Hospice)? DNR status @ -No What co-morbidities impacted this encounter? (DM, HTN, Smoking, COPD, CAD, Cancer, CVA, ARF, Chemo, Hep., AIDS, mental health diagnosis, sleep apnea, morbid obesity)? @ -None Was patient admitted / discharged? Hospital course, mention meds given and route , prescriptions, significant lab abnormalities, going to OR and other pertinent info. @ -Patient reevaluated. Patient is alert and oriented. Patient only complains of feeling achy from the seizure and does request pain medication for this. Patient states she does have a urologist and does agree to close follow-up. Patient is agreeable to starting medication at this time until follow-up. Undiagnosed new problem with uncertain prognosis? @ -No Drug Therapy requiring intensive monitoring for toxicity (Heparin, Nitro, Insulin, Cardizem)? @ -No Were any procedures done? @ -No Diagnosis/symptom? @ -Seizure Acute, or Chronic, or Acute on Chronic? @ -Acute Uncomplicated (without systemic symptoms) or Complicated (systemic symptoms)? @ -default Side effects of treatment? @ -No Exacerbation, Progression, or Severe Exacerbation? @ -No Poses a threat to life or bodily function? How? (Chest pain, USA, SC, pneumonia, PE, COPD, DKA, ARF, appy, cholecystitis, CVA, Diverticulitis, Homicidal, Suicidal, threat to staff... and all critical care pts) @ -No - Lab Data Result diagrams: 03/13/23 14:26 03/13/23 14:26 Lab Results 03/13/23 03/13/23 Range/Units 14:26 14:26 WBC 9.0 (3.8-10.6) k/uL RBC 5.00 (3.80-5.40) m/uL Hgb 14.8 (11.4-16.0) gm/dL Hct 44.1 (34.0-46.0) % MCV 88.2 (80.0-100.0) fL MCH 29.7 (25.0-35.0) pg MCHC 33.7 (31.0-37.0) g/dL RDW 13.3 (11.5-15.5) % Plt Count 234 (150-450) k/uL MPV 8.1 Neutrophils % 52 % Lymphocytes % 36 % Monocytes % 7 % Eosinophils % 3 % Basophils % 0 % Neutrophils # 4.7 (1.3-7.7) k/uL Lymphocytes # 3.3 (1.0-4.8) k/uL Monocytes # 0.6 (0-1.0) k/uL Eosinophils # 0.3 (0-0.7) k/uL Basophils # 0.0 (0-0.2) k/uL Sodium 142 (137-145) mmol/L Potassium 4.0 (3.5-5.1) mmol/L Chloride 110 H (98-107) mmol/L Carbon Dioxide 15 L (22-30) mmol/L Anion Gap 17 mmol/L BUN 15 (7-17) mg/dL Creatinine 0.67 (0.52-1.04) mg/dL Est GFR (CKD-EPI)AfAm >90 (>60 ml/min/1.73 sqM) Est GFR (CKD-EPI)NonAf >90 (>60 ml/min/1.73 sqM) Glucose 88 (74-99) mg/dL Calcium 8.6 (8.4-10.2) mg/dL Magnesium 2.2 (1.6-2.3) mg/dL Total Bilirubin 0.4 (0.2-1.3) mg/dL AST 33 (14-36) U/L ALT 31 (4-34) U/L Alkaline Phosphatase 92 (38-126) U/L Total Protein 6.7 (6.3-8.2) g/dL Albumin 4.6 (3.5-5.0) g/dL Disposition Clinical Impression: Generalized seizure Disposition: HOME SELF-CARE Condition: Stable Instructions (If sedation given, give patient instructions): Seizure/Epilepsy Discharge Instructions & Follow-Up, Recurrent Seizures in Adults (ED) Additional Instructions: Please do follow-up with your primary care physician in the next day or 2 for recheck. Please also follow-up with your neurologist in the next few days for recheck. Return for seizures, weakness or confusion, worsening or changing symptoms or other concerns. Prescription has been sent to pharmacy. Prescriptions: levETIRAcetam [Keppra] 500 mg PO Q12HR #60 tab Is patient prescribed a controlled substance at d/c from ED?: No Referrals: Alona Maddox MD [Primary Care Provider] - 1-2 days Time of Disposition: 15:15
[2023-03-13 14:32] LABS: Basophils % (A) 0 %; Eosinophils # (A) 0.3 k/uL (0-0.7); Eosinophils % (A) 3 %; HCT 44.1 % (34.0-46.0); HGB 14.8 gm/dL (11.4-16.0); Lymphocytes # (A) 3.3 k/uL (1.0-4.8); Lymphocytes % (A) 36 %; MCH 29.7 pg (25.0-35.0); MCHC 33.7 g/dL (31.0-37.0); MCV 88.2 fL (80.0-100.0); Mean Platelet Volume 8.1; Monocytes # (A) 0.6 k/uL (0-1.0); Monocytes % (A) 7 %; Neutrophils # (A) 4.7 k/uL (1.3-7.7); Neutrophils % (A) 52 %; Platelet Count 234 k/uL (150-450); RDW 13.3 % (11.5-15.5)
[2023-03-13 14:36] VITALS: RESP 18; TEMP 98.6
[2023-03-13 14:50] LABS: ALT 31 U/L (4-34); AST 33 U/L (14-36); African American GFR (CKD) >90 (>60 ml/min/1.73 sqM); Albumin 4.6 g/dL (3.5-5.0); Alkaline Phosphatase 92 U/L (38-126); Anion Gap 17 mmol/L; Blood Urea Nitrogen 15 mg/dL (7-17); Calcium 8.6 mg/dL (8.4-10.2); Carbon Dioxide 15 mmol/L (22-30); Chloride 110 mmol/L (98-107); Glucose 88 mg/dL (74-99); Magnesium 2.2 mg/dL (1.6-2.3); Non-African American GFR(CKD) >90 (>60 ml/min/1.73 sqM); Sodium 142 mmol/L (137-145); Total Bilirubin 0.4 mg/dL (0.2-1.3); Total Protein 6.7 g/dL (6.3-8.2)
[2023-03-13] MEDS ORDERED: MORPHINE SULFATE 4 MG/ML SYRINGE IVP STA (15:09)
[2023-03-13] MEDS ORDERED: ONDANSETRON ODT 4 MG TAB PO STA (15:49)
[2023-03-13 16:05] VITALS: BP 138/88; PULSE 98
== END 2023-03-13 15:46 | disposition home or self-care (01) ==
LOC: EC 14:16
DX: G40.409 Other generalized epilepsy and epileptic syndromes, not intractable, without status epilepticus (principal); R00.0 Tachycardia, unspecified; I10 Essential (primary) hypertension; J45.909 Unspecified asthma, uncomplicated; K21.9 Gastro-esophageal reflux disease without esophagitis; E07.9 Disorder of thyroid, unspecified; Z79.890 Hormone replacement therapy; Z79.82 Long term (current) use of aspirin; Z79.899 Other long term (current) drug therapy; Z90.49 Acquired absence of other specified parts of digestive tract; Z87.891 Personal history of nicotine dependence; Z88.1 Allergy status to other antibiotic agents; Z91.040 Latex allergy status; Z91.09 Other allergy status, other than to drugs and biological substances; Z91.012 Allergy to eggs; Z88.8 Allergy status to other drugs, medicaments and biological substances
CPT/HCPCS: 36415; 93005; 80053; 83735; 85025; 99285; 96374; 96375; J2270; J1953

== ENCOUNTER → 2023-04-25 | Outpatient (CLI) | payer OTHER | END | disposition home or self-care (01) | LOC: LABWHC1 10:58 | PROVIDERS: ATTEND Family Medicine | DX: J32.0 Chronic maxillary sinusitis (principal) | CPT/HCPCS: 36415; 82164; 82784; 86038; 86850 ==

== ENCOUNTER → 2023-05-19 | Outpatient (CLI) | payer OTHER ==
--- NOTE | 2023-05-19 18:19 | CT ---
EXAMINATION TYPE: CT facial bones wo con DATE OF EXAM: 05/19/2023 COMPARISON: 06/22/2019 HISTORY: Chronic sinus pressure and pain CT DLP: 587.5 mGycm Automated exposure control for dose reduction was used. TECHNIQUE: CT scan of the sinuses is performed without contrast, axial images are obtained, coronal r eformatted images are also reviewed. FINDINGS: The frontal sinuses are hypoplastic on the left. There is a small focal area of mucosal thickening in the right ethmoid air cells. The remaining paran eliezer sinuses are well aerated without mucus retention cyst, polyp or air-fluid level. The ostiomeatal complexes are patent bilaterally. The osseous musa paranasal sinuses are intact. The intraorbital contents appear normal symmetric. The mastoid air cells and middle ear cavities are well aerated. IMPRESSION: Minimal right ethmoid inflammation. The remaining paranasal sinuses are well aerated and are no air- fluid levels to just acute sinusitis.
== END | disposition home or self-care (01) ==
LOC: RADCTMAIN 17:41
PROVIDERS: ATTEND Family Medicine
DX: J32.2 Chronic ethmoidal sinusitis (principal)
CPT/HCPCS: 70486

== ENCOUNTER → 2023-06-18 | Outpatient (CLI) | payer OTHER | END | disposition home or self-care (01) | LOC: LABWHC1 10:23 | PROVIDERS: ATTEND Internal Medicine Infectious Disease | DX: D84.9 Immunodeficiency, unspecified (principal) | CPT/HCPCS: 36415 ==

== ENCOUNTER → 2023-09-05 | Outpatient (CLI) | payer OTHER ==
[2023-09-05 19:06] LABS: Basophils # (A) 0.05 X 10*3/uL (0.00-0.10); Basophils % (A) 0.7 %; Eosinophils # (A) 0.24 X 10*3/uL (0.04-0.35); Eosinophils % (A) 3.5 %; HCT 43.7 % (37.2-46.3); HGB 14.9 g/dL (12.0-15.0); Lymphocytes # (A) 2.34 X 10*3/uL (0.90-5.00); Lymphocytes % (A) 34.2 %; MCH 29.4 pg (27.0-32.0); MCHC 34.1 g/dL (32.0-37.0); MCV 86.2 FL (80.0-97.0); Mean Platelet Volume 11.3 FL (9.5-12.2); Monocytes # (A) 0.51 X 10*3/uL (0.20-1.00); Monocytes % (A) 7.5 %; NRBC Per 100 WBC 0 X 10*3/uL (0.00-0.01); Neutrophils # (A) 3.69 X 10*3/uL (1.80-7.70); Platelet Count 265 X 10*3/uL (140-440); RBC 5.07 X 10*6/uL (4.10-5.20); RDW 12.8 % (11.5-14.5); WBC 6.84 X 10*3/uL (4.50-10.00)
[2023-09-05 21:14] LABS: ALT 51 U/L (8-44); AST 35 U/L (13-35); Albumin 4.8 g/dL (3.8-4.9); Alkaline Phosphatase 113 U/L (41-126); BUN/Creat Ratio 23.33 Ratio (12.00-20.00); Calcium 9.3 mg/dL (8.7-10.3); Carbon Dioxide 25.5 mmol/L (21.6-31.8); Chloride 104 mmol/L (96-109); Chol/HDL Ratio 3.54 Ratio; Creatine Kinase 82 U/L (26-186); Globulin 1.6 g/dL (1.6-3.3); Glucose 102 mg/dL (70-110); Magnesium 2.2 mg/dL (1.5-2.4); Potassium 4.8 mmol/L (3.5-5.5); Sodium 142 mmol/L (135-145); T4, Free (Free Thyroxine) 1.49 ng/dL (0.80-1.80); Total Bilirubin 0.5 mg/dL (0.3-1.2); Total Protein 6.4 g/dL (6.2-8.2)
== END | disposition home or self-care (01) ==
LOC: LABWHC1 12:42
PROVIDERS: ATTEND Family Medicine
DX: Z00.01 Encounter for general adult medical examination with abnormal findings (principal); D84.89 Other immunodeficiencies; D47.9 Neoplasm of uncertain behavior of lymphoid, hematopoietic and related tissue, unspecified; D51.9 Vitamin B12 deficiency anemia, unspecified; E27.9 Disorder of adrenal gland, unspecified; E55.9 Vitamin D deficiency, unspecified; E78.9 Disorder of lipoprotein metabolism, unspecified; E27.40 Unspecified adrenocortical insufficiency; G47.9 Sleep disorder, unspecified; R73.9 Hyperglycemia, unspecified
CPT/HCPCS: 36415; 80053; 80061; 82306; 82550; 82607; 83036; 83735; 84439; 84443; 85025

== ENCOUNTER → 2024-08-06 | Outpatient (CLI) | payer OTHER ==
--- NOTE | 2024-08-08 10:07 | MR ---
EXAMINATION TYPE: MR brain/lspine wo con DATE OF EXAM: 08/06/2024 12:02 PM COMPARISON: None. CLINICAL INDICATION: Female, 59 years old with history of G43.711 CHRONIC MIGRAINE W/O AURA, Migraine , seizure, lower back pain radiates into buttocks. TECHNIQUE: Multiplanar, multiecho imaging on a 3.0 Cookie magnet is performed through the brain. Stud y is performed within 24 hours of arrival to the hospital.Multiplanar, multiecho imaging on a 3.0 Patricia la magnet is performed through the knee. IV Contrast: mL (None, if empty) FINDINGS: The craniovertebral junction is normal. There appears to be an empty sella. The pituitary stalk is mi dline. Optic chiasm is visualized is normal. Diffusion-weighted imaging is performed. No abnormal hyperintensity is present to suggest an acute i ntracranial infarct or acute ischemic change. There are scattered punctate areas of hyperintensity on T2 and Inversion Recovery weighted sequences which are non-specific but can be related to microvascular ischemic changes. Reference lesions: 1. Subcortical white matter left frontal lobe measuring 0.6 cm, series 701 image 19 2. Left centrum semiovale measuring 0.9 cm. Series 701 image 21. 3. Right subcortical vertex measuring 0.5 cm. Series 701 image 25. Ventricles and sulci are appropriate for the patient age. IMPRESSION: 1. Scattered punctate white matter changes are nonspecific. Differential could include microvascular ischemic change, multiple sclerosis, Lyme disease, migraine headaches. EXAMINATION TYPE: MR brain/lspine wo con DATE OF EXAM: 08/06/2024 12:02 PM COMPARISON: None. CLINICAL INDICATION: Female, 59 years old with history of G43.711 CHRONIC MIGRAINE W/O AURA, Migraine , seizure, lower back pain radiates into buttocks. TECHNIQUE: Multiplanar, multisequence images of the lumbar spine were acquired. IV Contrast: mL (None, if empty) FINDINGS: Cord ends at the L1-L2 level. S1-2: Residual disc is present no disc herniation or spinal canal stenosis related L5-S1: Broad-based disc bulge with mild anterior thecal sac compression. Increased signal on T2-weigh bossman sequences suggest underlying annular tear. Facet hypertrophy is present with ligamentum flavum la xity is present. No spinal canal stenosis or neural foraminal stenosis present. L4-L5: No focal disc herniation or significant disc bulge. No spinal canal stenosis. Neural foramen are patent. L3-L4: No focal disc herniation or significant disc bulge. No spinal canal stenosis. Neural foramen are patent. L2-L3: No focal disc herniation or significant disc bulge. No spinal canal stenosis. Neural foramen are patent. L1-L2: No focal disc herniation or significant disc bulge. No spinal canal stenosis. Neural foramen are patent. T12-L1: No focal disc herniation or significant disc bulge. No spinal canal stenosis. Neural forame n are patent. IMPRESSION: 1. Annular tear and mild disc bulging L5-S1 mild anterior thecal sac flattening. No stenosis is prese nt. [facility], , 08/08/2024 10:05 AM
== END | disposition home or self-care (01) ==
LOC: RADMRIMAIN 10:42
PROVIDERS: ATTEND Psychiatry & Neurology Neurology
DX: G43.711 Chronic migraine without aura, intractable, with status migrainosus (principal); M51.369 Other intervertebral disc degeneration, lumbar region without mention of lumbar back pain or lower extremity pain; R56.9 Unspecified convulsions; R90.82 White matter disease, unspecified; A69.20 Lyme disease, unspecified; M51.360 Other intervertebral disc degeneration, lumbar region with discogenic back pain only; M51.370 Other intervertebral disc degeneration, lumbosacral region with discogenic back pain only
CPT/HCPCS: 70551; 72148

== ENCOUNTER → 2024-11-01 | Outpatient (CLI) | payer OTHER ==
--- NOTE | 2024-11-01 12:16 | MM ---
Reason for Exam: Screening (asymptomatic). Last mammogram was performed 2 year(s) and 3 month(s) ago. Patient History: Menarche at age 15. First Full-Term at age 30. Hysterectomy at age 49. Postmenopausal. Benign Excisional Biopsy. Maternal aunt had breast cancer at or over age 50. Maternal aunt had breast cancer at or over age 50. Maternal aunt had breast cancer at or over age 50. Risk Values: Esther 5 year model risk: 1.7%. NCI Lifetime model risk: 10.2%. Prior Study Comparison: 11/11/2016 Bilateral Screening Mammogram, [facility]. 07/20/2018 Bilateral Screening Mammogram, [facility]. 08/23/2022 Bilateral MG screening mammo w CAD, [facility]. Tissue Density: There are scattered areas of fibroglandular density. Findings: Analyzed By CAD. There are a few tiny benign-appearing round calcifications bilaterally redemonstrated. Benign-appearing bilateral axillary lymph nodes are again seen. There is no suspicious group of microcalcifications or new suspicious mass in either breast. Overall Assessment: Benign, BI-RAD 2 Management: Screening Mammogram of both breasts in 1 year. . Patient should continue monthly self-breast exams. A clinical breast exam by your physician is recommended on an annual basis. This exam should not preclude additional follow-up of suspicious palpable abnormalities. Note on Esther scores and lifetime risk: 1. A Esther score greater than 3% is considered moderate risk. If this is the case, consider specialist referral to assess eligibility for a risk reducing agent. 2. If overall lifetime risk for the development of breast cancer is 20% or higher, the patient may qualify for future screening with alternating mammogram and breast MRI. [facility], , 11/01/2024 12:13 PM. Electronically signed and approved by: Brandin Chauhan M.D.
--- NOTE | 2024-11-01 12:16 | BD ---
EXAMINATION TYPE: Axial Bone Density DATE OF EXAM: 11/01/2024 CLINICAL HISTORY: 59 years old Female. ICD-10 CODE: N950 MENOPAUSE DISORDER , Additional History: Height: 65 Weight: 212 FRAX RISK QUESTIONS: History of Fracture in Adulthood: yes Secondary Osteoporosis: RISK FACTORS HISTORY OF: History of Wrist Fracture: right When: age 18 MEDICATIONS: Thyroid Medications: Which medication: Levothyroxine How Lon-6 years EXAM MEASUREMENTS: Bone mineral densitometry was performed using the Spondo System. Bone mineral density as measured about the Lumbar spine is: ----- L1-L4(G/cm2): 1.135 T Score Values are as follows: ----- L1: -1.6 ----- L2: -0.3 ----- L3: 0.4 ----- L4: -0.4 ----- L1-L4: -0.4 Z Score Values are as follows: ----- L1: -1.6 ----- L2: -0.3 ----- L3: 0.4 ----- L4: -0.4 ----- L1-L4: -0.4 Bone mineral density has: Decreased 9.9% since study of: 08-27-22 Bone mineral density about the R hip (g/cm2): 0.978 Bone mineral density about the L hip (g/cm2): 1.017 T Score values are as follows: -----R Neck: -0.4 -----L Neck: -0.7 -----R Total: -0.2 -----L Total: 0.1 Z Score values are as follows: -----R Neck: 0.1 -----L Neck: -0.2 -----R Total: -0.2 -----L Total: 0.1 Bone mineral density has: Decreased -5.4% since study of: 08-27-22 FRAX%s: The graph provided illustrates a 10.0% chance for a major osteoporotic fx and a 0.4% chance f or the hips probability for fx in 10 years time. IMPRESSION: Normal (Values between +1 and -1 indicate normal bone mass). Consider repeating this study in 5 year s or sooner if there is some new clinical indication. NOTE: T-SCORE=SD OF THE YOUNG ADULT MEAN. [facility], , 11/01/2024 12:14 PM
== END | disposition home or self-care (01) ==
LOC: RADMAMWWP 10:16
PROVIDERS: ATTEND Family Medicine
DX: Z12.31 Encounter for screening mammogram for malignant neoplasm of breast (principal); R92.323 Mammographic fibroglandular density, bilateral breasts; M85.89 Other specified disorders of bone density and structure, multiple sites; Z78.0 Asymptomatic menopausal state; Z80.3 Family history of malignant neoplasm of breast
CPT/HCPCS: 77063; 77067; 77080